=== PATIENT | female | born 1960 | race Caucasian/White ===

== ENCOUNTER → 2016-10-12 | Outpatient (CLI) | payer BC, OTHER ==
[~2016-10-12] MED LIST: ACET-1256 PO; ASCA500 PO; AZITTAB PO; CLR10 PO; FLUC150T PO; FLUT1SPR12 NAE; METO1TAB69 PO; MTR600 PO; MULT-614 PO; NYSTOIN EX; PRLSR20 PO; PROB1CAP PO; SYN112 PO; VNTHFA/IN INH; VTME100 PO
== END | disposition home or self-care (01) ==
LOC: C.LABMFLN 14:44
PROVIDERS: ATTEND Family Medicine
DX: R10.31 Right lower quadrant pain (principal)

== ENCOUNTER 2016-10-19 16:27 | Emergency (ER) | payer BC ==
[~2016-10-19] VITALS: Ht 185.4 cm; Wt 102.0 kg
[2016-10-19 16:29] VITALS: TEMP 36.9; Ht 185.4 cm; Wt 102.0 kg
[2016-10-19] MEDS ORDERED: VTME100 PO (17:20)
[2016-10-19] MEDS ORDERED: MULT-614 PO (17:20)
[2016-10-19] MEDS ORDERED: METO1TAB69 PO (17:20)
[2016-10-19] MEDS ORDERED: FLUT1SPR12 NAE (17:20)
[2016-10-19] MEDS ORDERED: CLR10 PO (17:20)
[2016-10-19] MEDS ORDERED: ASCA500 PO (17:20)
[2016-10-19] MEDS ORDERED: PRLSR20 PO (17:20)
[2016-10-19] MEDS ORDERED: PROB1CAP PO (17:20)
[2016-10-19] MEDS ORDERED: SYN112 PO (17:20)
[2016-10-19] MEDS ORDERED: ACET-1256 PO (17:21)
--- NOTE | 2016-10-19 17:25 | EMERGENCY ROOM VISIT NOTE ---
History Report prepared by Yinka: Sammy Hancock Under the Supervision of: Dr. Elisha Houston M.D. First contact with patient: 17:10 Chief Complaint: ABDOMINAL PAIN Stated Complaint: SEVERE ABD PAIN/PRESSURE Nursing Triage Summary: severe abdominal pain. all throughout abdomen. pain has been for the past 2 weeks but seems to be getting worse History of Present Illness The patient is a 56 year old female who presents to the Emergency Room with complaints of constant worsening abdominal pain for the past two weeks. The patient states that she has had bloating and pressure, and she states that the pain moves around her abdomen and also into her kidney area. She denies any nausea, melena, and past surgeries She states that she has a past medical history of cystitis. The patient states that she went to her doctor, and they did a urine test on he and the cultures came back negative. She states that she is currently taking Prilosec four times per day. The patient states that the pain is worse when she eats. Source of History: patient Onset: two weeks ago Position: abdomen Quality: pressure Timing: constant, worsening Modifying Factors (Worsening): eating Associated Symptoms: No melena, No nausea Review of Systems See HPI for pertinent positives & negatives. A total of 10 systems reviewed and were otherwise negative. Past Medical & Surgical Medical Problems: (1) Asthma (2) Cystitis (3) HTN (hypertension) (4) Vertigo Family History FH: cancer FH: gallbladder disease Social History Smoking Status: Never Smoker Alcohol Use: occasionally Marital Status: Housing Status: lives with family Occupation Status: employed Current/Historical Medications Scheduled Ascorbic Acid (Vitamin C), 500 MG PO DAILY Fluticasone Propionate (Nasal) (Flonase Allergy Relief Ch), 2 SPRAYS JOE DAILY Levothyroxine Sodium (Synthroid), 112 MCG PO DAILY Loratadine (Claritin), 10 MG PO DAILY Metoprolol Succ (Toprol Xl) (Toprol-Xl ), 100 MG PO DAILY Multiple Vitamins W/ Minerals (Centrum Silver Ultra [place]), 1 TAB PO DAILY Omeprazole (Prilosec), 20 MG PO DAILY Probiotic Product (Fortify Daily Probiotic), 1 CAP PO DAILY Tocopheryl Acet,Dl-Alpha (Vitamin E), 100 INTER.UNIT PO DAILY Scheduled PRN Acetaminophen (Tylenol), 1,000 MG PO Q6 PRN for Pain Allergies Coded Allergies: Cefprozil (Verified Allergy, Intermediate, hives, 10/19/16) Tetracycline (Verified Allergy, Intermediate, hives, 10/19/16) Sulfa Antibiotics (Verified Allergy, Unknown, Unknown, 10/19/16) Sulfamethoxazole (Verified Allergy, Unknown, 10/19/16) Physical Exam Vital Signs Date Time Temp Pulse Resp B/P Pulse Ox O2 Delivery O2 Flow Rate FiO2 10/19/16 21:22 63 18 155/83 97 Room Air 10/19/16 21:05 66 18 98 Room Air 10/19/16 19:08 64 18 157/75 97 Room Air 10/19/16 18:18 66 18 154/94 98 Room Air 10/19/16 16:29 36.9 74 18 153/93 97 Room Air Physical Exam CONSTITUTIONAL: Mildly anxious distress. HEENT: No icterus, moist mucous membranes NECK: No meningismus, trachea is midline. CARDIOVASCULAR: Regular rate, normal perfusion RESPIRATORY: Unlabored breathing. Clear to auscultation. GASTROINTESTINAL: Mid diffuse abdominal tenderness GENITOURINARY: No flank tenderness MUSCULOSKELETAL: Full range of motion NEUROLOGIC: No acute gross focal deficits. PSYCHIATRIC: Normal affect SKIN: Normal for ethnicity. Medical Decision & Procedures ER Provider Diagnostic Interpretation: Radiology results as stated below per my review and radiologist interpretation. ULTRASOUND RIGHT UPPER QUADRANT ABDOMEN CLINICAL HISTORY: Generalized abdominal pain. Bloating. COMPARISON STUDY: Abdominal CT dated 05/18/2013. TECHNIQUE: Real-time, grayscale, and color flow sonography of the right upper quadrant of the abdomen was performed. Images are reviewed in the transverse and longitudinal planes. The examination is degraded by significant bowel gas. FINDINGS: Liver: The liver is normal in size and echotexture. There is no intrahepatic biliary ductal dilatation. The main portal vein is patent. Gallbladder: The gallbladder is normal in appearance. No gallstones are identified. There is no gallbladder wall thickening or pericholecystic fluid. A sonographic Hester's sign is reportedly absent. The common bile duct measures up to 0.3 cm in diameter. Pancreas: Visualized portions of the pancreatic head and body are normal in appearance. The splenic vein is patent. Right kidney: Survey images of the right kidney demonstrate normal size and echotexture. There is no hydronephrosis. Ascites: None. IMPRESSION: Unremarkable sonographic assessment of the right upper quadrant. No gallstones are identified. Electronically signed by: Rk Delgado M.D. 10/19/2016 6:04 PM Dictated Date/Time: 10/19/2016 6:03 PM TWO VIEW CHEST CLINICAL HISTORY: Generalized abdominal pain. FINDINGS: PA and lateral chest radiographs are obtained. No prior studies are available for comparison at the time of dictation. The cardiomediastinal silhouette is unremarkable. Nonspecific interstitial thickening is noted. There is linear scarring versus atelectasis at the left lung base. The lungs and pleural spaces are otherwise clear. There is no pneumothorax. The skeletal structures are osteopenic. There is moderate S-shaped thoracolumbar scoliosis. IMPRESSION: No active disease in the chest. Electronically signed by: Rk Delgado M.D. 10/19/2016 5:46 PM Dictated Date/Time: 10/19/2016 5:[address] SCAN OF THE ABDOMEN AND PELVIS WITH IV CONTRAST CLINICAL HISTORY: Generalized/diffuse abdominal pain. Bloating. COMPARISON STUDY: Abdominal CT dated 05/18/2013. Abdominal ultrasound dated 10/19/2016. TECHNIQUE: Following the IV administration of 115 cc of Optiray 320, CT scan of the abdomen and pelvis is performed from the lung bases to the proximal femora. Images are reviewed in the axial, sagittal, and coronal planes. IV contrast was administered without complication. Automated dose control exposure was utilized. The examination is degraded by large body habitus, and by streak artifact from the body wall abutting the CT gantry. CT DOSE: 793.96 mGy.cm FINDINGS: Lung bases: The heart is normal in size and without pericardial effusion. A small fat-containing Bochdalek hernia is noted at the right lung base. The lung bases are otherwise clear noting bibasilar atelectasis. A small hiatal hernia is noted. Liver: The contrast-enhanced liver is normal in size, contour, and attenuation. There is no intrahepatic biliary ductal dilatation. The hepatic veins and portal veins are patent. Gallbladder: Unremarkable. Spleen: Normal in size and attenuation. Pancreas: Unremarkable. Adrenal glands: Unremarkable. Kidneys: The contrast enhanced kidneys demonstrate mild cortical atrophy and are without hydronephrosis. The kidneys enhance symmetrically. A 1.8 cm cyst is noted in the interpolar left kidney. Additional subcentimeter cortical hypodensities also likely represent cysts but are too small for definitive characterization. Abdominal vasculature: The abdominal aorta is normal in course and caliber. Bowel: The small bowel and colon are normal in course and caliber. There is mild diffuse wall thickening suggested throughout the left colon. No significant pericolonic inflammation is seen. The appendix is well-visualized and normal. Peritoneum: There is no intraperitoneal free air or abdominal ascites. There is a fat-containing umbilical hernia. Lymphadenopathy: None. Pelvic viscera: The bladder is decompressed and grossly unremarkable. The uterus and adnexa are normal as visualized. Tiny ovarian follicles are observed. Numerous phleboliths are present in the pelvis. Skeletal structures: The skeletal structures are osteopenic. No lytic or blastic lesions are seen. A large hemangioma is present in the body of L3. IMPRESSION: Findings suggest a mild and nonspecific colitis of the left colon. This is likely on an infectious or inflammatory basis in this age group. Clinical correlation will be required. Electronically signed by: Rk Delgado M.D. 10/19/2016 8:12 PM Dictated Date/Time: 10/19/2016 8:07 PM Laboratory Results 10/19/16 17:30 Red Blood Count 4.96, Mean Corpuscular Volume 86.1, Mean Corpuscular Hemoglobin 29.0, Mean Corpuscular Hemoglobin Concent 33.7, Mean Platelet Volume 9.6, Neutrophils (%) (Auto) 54.7, Lymphocytes (%) (Auto) 34.5, Monocytes (%) (Auto) 7.1, Eosinophils (%) (Auto) 2.9, Basophils (%) (Auto) 0.7, Neutrophils # (Auto) 3.74, Lymphocytes # (Auto) 2.37, Monocytes # (Auto) 0.49, Eosinophils # (Auto) 0.20, Basophils # (Auto) 0.05 10/19/16 17:30 Test 10/19/16 17:15 10/19/16 17:30 Urine Color YELLOW Urine Appearance CLOUDY (CLEAR) Urine pH 5.5 (4.5-7.5) Urine Specific [place] 1.029 (1.000-1.030) Urine Protein NEG (NEG) Urine Glucose (UA) NEG (NEG) Urine Ketones 2+ (NEG) Urine Occult Blood 2+ (NEG) Urine Nitrite NEG (NEG) Urine Bilirubin NEG (NEG) Urine Urobilinogen NEG (NEG) Urine Leukocyte Esterase NEG (NEG) Urine WBC (Auto) 1-5 /hpf (0-5) Urine RBC (Auto) 10-30 /hpf (0-4) Urine Hyaline Casts (Auto) 1-5 /lpf (0-5) Urine Epithelial Cells (Auto) 10-20 /lpf (0-5) Urine Bacteria (Auto) NEG (NEG) Urine Crystals CALCIUM OXALATE (NONE White Blood Count 6.86 K/uL (4.8-10.8) Red Blood Count 4.96 M/uL (4.2-5.4) Hemoglobin 14.4 g/dL (12.0-16.0) Hematocrit 42.7 % (37-47) Mean Corpuscular Volume 86.1 fL (80-100) Mean Corpuscular Hemoglobin 29.0 pg (25-34) Mean Corpuscular Hemoglobin Concent 33.7 g/dl (32-36) Platelet Count 219 K/uL (130-400) Mean Platelet Volume 9.6 fL (7.4-10.4) Neutrophils (%) (Auto) 54.7 % Lymphocytes (%) (Auto) 34.5 % Monocytes (%) (Auto) 7.1 % Eosinophils (%) (Auto) 2.9 % Basophils (%) (Auto) 0.7 % Neutrophils # (Auto) 3.74 K/uL (1.4-6.5) Lymphocytes # (Auto) 2.37 K/uL (1.2-3.4) Monocytes # (Auto) 0.49 K/uL (0.11-0.59) Eosinophils # (Auto) 0.20 K/uL (0-0.5) Basophils # (Auto) 0.05 K/uL (0-0.2) RDW Standard Deviation 42.9 fL (36.4-46.3) RDW Coefficient of Variation 13.7 % (11.5-14.5) Immature Granulocyte % (Auto) 0.1 % Immature Granulocyte # (Auto) 0.01 K/uL (0.00-0.02) Anion Gap 12.0 mmol/L (3-11) Est Creatinine Clear Calc Drug Dose 95.7 ml/min Estimated GFR () 85.1 Estimated GFR (Non- 73.4 BUN/Creatinine Ratio 20.0 (10-20) Calcium Level 8.9 mg/dl (8.5-10.1) Total Bilirubin 0.4 mg/dl (0.2-1) Direct Bilirubin 0.1 mg/dl (0-0.2) Aspartate Amino Transf (AST/SGOT) 14 U/L (15-37) Alanine Aminotransferase (ALT/SGPT) 19 U/L (12-78) Alkaline Phosphatase 52 U/L (45-117) Troponin I < 0.015 ng/ml (0-0.045) Total Protein 7.9 gm/dl (6.4-8.2) Albumin 4.0 gm/dl (3.4-5.0) Lipase 183 U/L (73-393) Labs reviewed by ED physician. ED Course 1710: Past medical records reviewed. The patient was evaluated in room C4. A complete history and physical examination was performed. 2100: Upon reexamination the patient is resting. I discussed results and treatment plan with the patient. She verbalizes agreement and understanding. The patient is ready for discharge. Medical Decision Differential diagnoses include but are not limited to; Biliary disease, obstruction, tumor. 56-year-old presents to the emergency department for evaluation nonspecific bloating and pressure throughout her abdomen over the last week. Extensive evaluation including CT, ultrasound and labs was essentially unremarkable other than 2+ ketones in the urine, small blood and urine crystals. She is advised to hydrate and follow up with her doctor. She was provided copy of all labs and imaging results today. She declined IV fluids prior to discharge. Impression Primary Impression: Abdominal pain Scribe Attestation The scribe's documentation has been prepared under my direction and personally reviewed by me in its entirety. I confirm that the note above accurately reflects all work, treatment, procedures, and medical decision making performed by me. Departure Information Dispostion Home / Self-Care Referrals Kadie Alberts M.D. (PCP) Forms Call Back Authorization, HOME CARE DOCUMENTATION FORM, IMPORTANT VISIT INFORMATION Patient Instructions Abdominal Pain - [facility], My [facility]
[2016-10-19 17:35] LABS: URINE APPEARANCE CLOUDY (CLEAR); URINE BILIRUBIN NEG (NEG); URINE COLOR YELLOW; URINE NITRITE NEG (NEG); URINE PH 5.5 (4.5-7.5); URINE SPECIFIC GRAVITY 1.029 (1.000-1.030); UROBILINOGEN NEG (NEG)
[2016-10-19 17:37] LABS: MANUAL MICROSCOPIC REQUIRED? NO; REVIEW REQ? YES
--- NOTE | 2016-10-19 17:47 | DIAGNOSTIC IMAGING REPORT ---
TWO VIEW CHEST CLINICAL HISTORY: Generalized abdominal pain. FINDINGS: PA and lateral chest radiographs are obtained. No prior studies are available for comparison at the time of dictation. The cardiomediastinal silhouette is unremarkable. Nonspecific interstitial thickening is noted. There is linear scarring versus atelectasis at the left lung base. The lungs and pleural spaces are otherwise clear. There is no pneumothorax. The skeletal structures are osteopenic. There is moderate S-shaped thoracolumbar scoliosis. IMPRESSION: No active disease in the chest. Electronically signed by: Rk Delgado M.D. 10/19/2016 5:46 PM Dictated Date/Time: 10/19/2016 5:45 PM
[2016-10-19 17:48] LABS: BASO % 0.7 %; BASO ABS # 0.05 K/uL (0-0.2); COMPLETE YES; EOS % 2.9 %; HEMATOCRIT 42.7 % (37-47); IG% 0.1 %; LYMPH % 34.5 %; LYMPH ABS # 2.37 K/uL (1.2-3.4); MEAN CELL VOLUME 86.1 fL (80-100); MEAN CORPUSCULAR HGB CONC 33.7 g/dl (32-36); MEAN PLATELET VOLUME 9.6 fL (7.4-10.4); MONO % 7.1 %; NEUT % 54.7 %; PLATELET COUNT 219 K/uL (130-400); RED BLOOD COUNT 4.96 M/uL (4.2-5.4); WHITE BLOOD COUNT 6.86 K/uL (4.8-10.8)
--- NOTE | 2016-10-19 18:06 | DIAGNOSTIC IMAGING REPORT ---
ULTRASOUND RIGHT UPPER QUADRANT ABDOMEN CLINICAL HISTORY: Generalized abdominal pain. Bloating. COMPARISON STUDY: Abdominal CT dated 05/18/2013. TECHNIQUE: Real-time, grayscale, and color flow sonography of the right upper quadrant of the abdomen was performed. Images are reviewed in the transverse and longitudinal planes. The examination is degraded by significant bowel gas. FINDINGS: Liver: The liver is normal in size and echotexture. There is no intrahepatic biliary ductal dilatation. The main portal vein is patent. Gallbladder: The gallbladder is normal in appearance. No gallstones are identified. There is no gallbladder wall thickening or pericholecystic fluid. A sonographic Hester's sign is reportedly absent. The common bile duct measures up to 0.3 cm in diameter. Pancreas: Visualized portions of the pancreatic head and body are normal in appearance. The splenic vein is patent. Right kidney: Survey images of the right kidney demonstrate normal size and echotexture. There is no hydronephrosis. Ascites: None. IMPRESSION: Unremarkable sonographic assessment of the right upper quadrant. No gallstones are identified. Electronically signed by: Rk Delgado M.D. 10/19/2016 6:04 PM Dictated Date/Time: 10/19/2016 6:03 PM
[2016-10-19 18:19] LABS: ALT/SGPT 19 U/L (12-78); BLOOD UREA NITROGEN 17 mg/dl (7-18); CALCIUM 8.9 mg/dl (8.5-10.1); CARBON DIOXIDE 24 mmol/L (21-32); CHLORIDE 107 mmol/L (98-107); CREATININE 0.87 mg/dl (0.60-1.20); GLUCOSE 81 mg/dl (70-99); POTASSIUM 3.9 mmol/L (3.5-5.1); SODIUM 143 mmol/L (136-145)
[2016-10-19 18:24] LABS: ALKALINE PHOSPHATASE 52 U/L (45-117); AST/SGOT 14 U/L (15-37)
[2016-10-19] MEDS ORDERED: OPTIRAY 320 IV PRN (19:15)
--- NOTE | 2016-10-19 20:14 | DIAGNOSTIC IMAGING REPORT ---
CT SCAN OF THE ABDOMEN AND PELVIS WITH IV CONTRAST CLINICAL HISTORY: Generalized/diffuse abdominal pain. Bloating. COMPARISON STUDY: Abdominal CT dated 05/18/2013. Abdominal ultrasound dated 10/19/2016. TECHNIQUE: Following the IV administration of 115 cc of Optiray 320, CT scan of the abdomen and pelvis is performed from the lung bases to the proximal femora. Images are reviewed in the axial, sagittal, and coronal planes. IV contrast was administered without complication. Automated dose control exposure was utilized. The examination is degraded by large body habitus, and by streak artifact from the body wall abutting the CT gantry. CT DOSE: 793.96 mGy.cm FINDINGS: Lung bases: The heart is normal in size and without pericardial effusion. A small fat-containing Bochdalek hernia is noted at the right lung base. The lung bases are otherwise clear noting bibasilar atelectasis. A small hiatal hernia is noted. Liver: The contrast-enhanced liver is normal in size, contour, and attenuation. There is no intrahepatic biliary ductal dilatation. The hepatic veins and portal veins are patent. Gallbladder: Unremarkable. Spleen: Normal in size and attenuation. Pancreas: Unremarkable. Adrenal glands: Unremarkable. Kidneys: The contrast enhanced kidneys demonstrate mild cortical atrophy and are without hydronephrosis. The kidneys enhance symmetrically. A 1.8 cm cyst is noted in the interpolar left kidney. Additional subcentimeter cortical hypodensities also likely represent cysts but are too small for definitive characterization. Abdominal vasculature: The abdominal aorta is normal in course and caliber. Bowel: The small bowel and colon are normal in course and caliber. There is mild diffuse wall thickening suggested throughout the left colon. No significant pericolonic inflammation is seen. The appendix is well-visualized and normal. Peritoneum: There is no intraperitoneal free air or abdominal ascites. There is a fat-containing umbilical hernia. Lymphadenopathy: None. Pelvic viscera: The bladder is decompressed and grossly unremarkable. The uterus and adnexa are normal as visualized. Tiny ovarian follicles are observed. Numerous phleboliths are present in the pelvis. Skeletal structures: The skeletal structures are osteopenic. No lytic or blastic lesions are seen. A large hemangioma is present in the body of L3. IMPRESSION: Findings suggest a mild and nonspecific colitis of the left colon. This is likely on an infectious or inflammatory basis in this age group. Clinical correlation will be required. Electronically signed by: Rk Delgado M.D. 10/19/2016 8:12 PM Dictated Date/Time: 10/19/2016 8:07 PM
[2016-10-19 21:22] VITALS: BP 155/83; PULSE 63; O2SAT 97
[2017-02-20] MEDS ORDERED: AZITTAB PO (17:42)
[2017-02-23] MEDS ORDERED: VNTHFA/IN INH (17:42)
== END 2016-10-19 21:26 | disposition home or self-care (01) ==
LOC: C.EDB 16:28 → C.EDC 21:26
DX: R10.9 Unspecified abdominal pain (principal); I10 Essential (primary) hypertension; R14.0 Abdominal distension (gaseous)

== ENCOUNTER 2017-02-23 17:03 | Observation (INO) | payer BC ==
[~2017-02-23] VITALS: Ht 182.9 cm; Wt 102.1 kg
[~2017-02-23 17:03] MED LIST changes: -AMOX500C3 PO; -ASCA500 PO; -CAMPOIN7 TOP; -CETI10TA84 PO; -FLUC150T PO; -FLUT1INH INH; -FLUT1SPR12 NAE; -HYDR5SYP11 PO; -LACT10CA3 PO; -METO100T44 PO; -MONT1TAB3 PO; -MTR600 PO; -MULT-614 PO; -NF656 TD; -NYSTOIN EX; -OMEG10007 PO; -OPTIRAY 320 IV PRN; -PRIM50TA29 PO; -ROSU5TAB PO; -SYN112 PO; -VNTHFA/IN INH
[2017-02-23] MEDS ORDERED: NYSTOIN EX (17:42)
[2017-02-23] MEDS ORDERED: SODIUM CHLORIDE 0.9% 1000ML 1,000 ML IV STA (17:50)
[2017-02-23] MEDS ORDERED: ASPIRIN 81 MG CHEW PO STA (17:50)
[2017-02-23] MEDS ORDERED: NITROGLYCERIN 0.4 MG SL PER TAB CHARGE SL PRN ×2 (18:00→20:00)
[2017-02-23 18:04] LABS: BASO % 0.5 %; BASO ABS # 0.04 K/uL (0-0.2); COMPLETE YES; EOS % 3.1 %; HEMATOCRIT 45.9 % (37-47); IG% 0.3 %; LYMPH % 27.3 %; MEAN CELL VOLUME 88.1 fL (80-100); MEAN CORPUSCULAR HEMOGLOBIN 27.6 pg (25-34); MEAN CORPUSCULAR HGB CONC 31.4 g/dl (32-36); MEAN PLATELET VOLUME 9.3 fL (7.4-10.4); MONO % 7.2 %; NEUT % 61.6 %; PLATELET COUNT 218 K/uL (130-400); RED BLOOD COUNT 5.21 M/uL (4.2-5.4); WHITE BLOOD COUNT 7.69 K/uL (4.8-10.8)
--- NOTE | 2017-02-23 18:10 | DIAGNOSTIC IMAGING REPORT ---
CHEST ONE VIEW PORTABLE HISTORY: Atypical CHEST PAIN COMPARISON: Chest CTA 02/23/2017. FINDINGS: The lungs are clear. Cardiac silhouette is normal in size. No pleural effusions. No pneumothorax. Moderate S-shaped scoliosis. IMPRESSION: No acute process. Electronically signed by: Peter Funes M.D. 02/23/2017 6:08 PM Dictated Date/Time: 02/23/2017 6:08 PM
[2017-02-23 18:12] LABS: ALT/SGPT 28 U/L (12-78); AST/SGOT 12 U/L (15-37); BLOOD UREA NITROGEN 13 mg/dl (7-18); BUN/CREATININE RATIO 13.4 (10-20); CALCIUM 8.7 mg/dl (8.5-10.1); CARBON DIOXIDE 27 mmol/L (21-32); CHLORIDE 106 mmol/L (98-107); GLUCOSE 110 mg/dl (70-99); POTASSIUM 3.7 mmol/L (3.5-5.1); SODIUM 140 mmol/L (136-145)
[2017-02-23 18:15] LABS: ALKALINE PHOSPHATASE 66 U/L (45-117)
[2017-02-23] MEDS ORDERED: MoRPHine SULFATE 2 MG/ML CARP IV PRN (20:00)
[2017-02-23] MEDS ORDERED: POLYETHYLENE (MIRALAX) 17 GM PACK PO PRN (20:00)
[2017-02-23] MEDS ORDERED: ONDANSETRON INJ 2 MG/ML 2 ML VIAL IV PRN (20:00)
[2017-02-23] MEDS ORDERED: ALBUTEROL HFA 8 GM INHALER INH PRN (20:00)
[2017-02-23] MEDS ORDERED: NYSTATIN/TRIAMCINOLONE OINT 15 GM TUBE EXT PRN (20:00)
[2017-02-23] MEDS ORDERED: ALUMINUM/MAGNESIUM/SIMETH (MAALOX MAX) 30 ML UDC PO PRN (20:00)
[2017-02-23] MEDS ORDERED: MAGNESIUM HYDROXIDE SUSP 30 ML UDC PO PRN (20:00)
--- NOTE | 2017-02-23 20:09 | History and Physical ---
History & Physical Date & Time of Service: Feb 23, 2017 at 20:08 Chief Complaint: Chest Pain Primary Care Physician: Kadie Alberts M.D. History of Present Illness This pleasant 56-year-old female with a history of hypertension but otherwise no cardiac history who presents to the emergency department with 1 day of sudden onset chest pain. She states that last week she was in [place] at a spa retreat and stated that she gotten the deep tissue massage in her neck she returned home approximately 5 days ago. Upon her return she felt generalized swelling and mild tenderness bilaterally in her neck with a small degree of lightheadedness, weakness and generalized aches. Over proximal with 72 hours the neck symptoms improved and the swelling she feels came down. She states a remote history of TMJ syndrome, however it has not caused her problems for many many years. She denies any history with swallowing or chewing, and did not have the sense of her throat closing off. For the past 2 nights however, she has been waking up in the middle the night with this mild degree of chest pressure as well as feeling sweatiness across her sternum only and nowhere else. She had notified her PCP of the symptoms PCP and started her on a five-day course of azithromycin (she currently only has one day left). She'll that she did have some slight improvement, however early this morning at approximately 01:30 a.m., she developed more severe 8/10 central chest pressure squeezing that she states have some slight radiation to her left arm and hand. She denies any orthopnea, shortness of breath, palpitations or lower extremity edema. She states that she felt cold and tremors, though had no fevers. After roughly 30 minutes, she is able to get back to sleep. This morning after she woke she states that the pain was 80% better, but she made her appointment with her PCP to follow up. PCP did an EKG in the office, which was reported to be normal PCP. She also had lab work done at an outside hospital. A Monospot was negative. The d-dimer was elevated however at's 0.63. As such the PCP refer the patient to [facility] for CT evaluation for pulmonary embolism. The CT was done this afternoon and was reported as negative. However the patient continued to complain of chest pressure, 5/6 centrally in the sternum, and after she called her PCP she was instructed to go to the ED for further evaluation. In the ED the patient was given ASA 325, 0.4 mg sublingual nitrate. An initial troponin level was negative. EKG was done which showed some T-wave inversion in V1 and V2, though there is no prior EKG for comparison. Otherwise, the patient does state that she's had some degree of stress in the past few days. She makes note of her previous who had committed suicide 9 years ago and this does cause her some stress. 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 Past Medical/Surgical History HTN Hypothyroidism, s/p partial thyroidectomy Mild intermittent asthma Essential tremor or the right hand Restless right foot Family History FH: cancer FH: gallbladder disease - Mother of breast cancer in her 40s Social History Smoking Status: Never Smoker Smokeless Tobacco Use: No Alcohol Use: none Drug Use: none Marital Status: Occupational Status: employed (emotional disabilities teacher) Multi-Drug Resistant Organisms History of MDRO: No Allergies Coded Allergies: Cefprozil (Verified Allergy, Intermediate, hives, 02/23/17) Tetracycline (Verified Allergy, Intermediate, hives, 02/23/17) Sulfa Antibiotics (Verified Allergy, Unknown, Unknown, 02/23/17) Sulfamethoxazole (Verified Allergy, Unknown, 02/23/17) Home Medications Scheduled Ascorbic Acid (Vitamin C), 500 MG PO DAILY Azithromycin (Zithromax Z-Fabricio), 1 PKT PO UD Fluticasone Propionate (Nasal) (Flonase Allergy Relief Ch), 2 SPRAYS JOE DAILY Levothyroxine Sodium (Synthroid), 112 MCG PO DAILY Loratadine (Claritin), 10 MG PO DAILY Metoprolol Succ (Toprol Xl) (Toprol-Xl ), 100 MG PO DAILY Multiple Vitamins W/ Minerals (Centrum Silver Ultra Wome), 1 TAB PO DAILY Probiotic Product (Fortify Daily Probiotic), 1 CAP PO DAILY Tocopheryl Acet,Dl-Alpha (Vitamin E), 100 INTER.UNIT PO DAILY Scheduled PRN Albuterol Hfa (Ventolin Hfa), 2 PUFFS INH Q6H PRN for SOB/Wheezing Nystatin-Triamcinolone (Nystatin/Triamcinolone), 1 APPLN EX DAILY PRN for VAGINALLY Review of Systems 10 point review of systems is otherwise negative unless stated above in the history of present illness Physical Exam Vital Signs Date Time Temp Pulse Resp B/P (MAP) Pulse Ox O2 Delivery O2 Flow Rate FiO2 02/23/17 19:33 84 28 144/89 98 Room Air 02/23/17 19:28 78 26 02/23/17 19:23 79 26 02/23/17 19:18 76 24 02/23/17 19:13 79 24 02/23/17 19:08 80 16 02/23/17 19:04 79 02/23/17 17:05 36.6 83 20 146/84 95 Room Air General Appearance: WD/WN, no apparent distress Head: normocephalic, atraumatic Eyes: normal inspection, EOMI ENT: hearing grossly normal, pharynx normal Neck: supple, no adenopathy, no JVD, + pertinent finding (old partial thyroidectomy scar well-healed) Respiratory/Chest: lungs clear, no respiratory distress Cardiovascular: regular rate, rhythm, no gallop, no murmur Abdomen/GI: normal bowel sounds, non tender, soft Back: no CVA tenderness, no muscle spasm Extremities/Musculoskelatal: no calf tenderness, no pedal edema Neurologic/Psych: alert, normal mood/affect, oriented x 3 Skin: normal color, warm/dry, no rash Lymphatic: no adenopathy Diagnostics Laboratory Results Results Past 24 Hours Test 02/23/17 17:30 02/23/17 18:01 Range/Units White Blood Count 7.69 4.8-10.8 K/uL Red Blood Count 5.21 4.2-5.4 M/uL Hemoglobin 14.4 12.0-16.0 g/dL Hematocrit 45.9 37-47 % Mean Corpuscular Volume 88.1 80-100 fL Mean Corpuscular Hemoglobin 27.6 25-34 pg Mean Corpuscular Hemoglobin Concent 31.4 32-36 g/dl Platelet Count 218 130-400 K/uL Mean Platelet Volume 9.3 7.4-10.4 fL Neutrophils (%) (Auto) 61.6 % Lymphocytes (%) (Auto) 27.3 % Monocytes (%) (Auto) 7.2 % Eosinophils (%) (Auto) 3.1 % Basophils (%) (Auto) 0.5 % Neutrophils # (Auto) 4.74 1.4-6.5 K/uL Lymphocytes # (Auto) 2.10 1.2-3.4 K/uL Monocytes # (Auto) 0.55 0.11-0.59 K/uL Eosinophils # (Auto) 0.24 0-0.5 K/uL Basophils # (Auto) 0.04 0-0.2 K/uL RDW Standard Deviation 42.6 36.4-46.3 fL RDW Coefficient of Variation 13.4 11.5-14.5 % Immature Granulocyte % (Auto) 0.3 % Immature Granulocyte # (Auto) 0.02 0.00-0.02 K/uL Sodium Level 140 136-145 mmol/L Potassium Level 3.7 3.5-5.1 mmol/L Chloride Level 106 98-107 mmol/L Carbon Dioxide Level 27 21-32 mmol/L Anion Gap 7.0 3-11 mmol/L Blood Urea Nitrogen 13 7-18 mg/dl Creatinine 1.00 0.60-1.20 mg/dl Est Creatinine Clear Calc Drug Dose 82.2 ml/min Estimated GFR () 71.9 Estimated GFR (Non- 62.1 BUN/Creatinine Ratio 13.4 10-20 Random Glucose 110 70-99 mg/dl Calcium Level 8.7 8.5-10.1 mg/dl Total Bilirubin 0.6 0.2-1 mg/dl Direct Bilirubin < 0.1 0-0.2 mg/dl Aspartate Amino Transf (AST/SGOT) 12 15-37 U/L Alanine Aminotransferase (ALT/SGPT) 28 12-78 U/L Alkaline Phosphatase 66 45-117 U/L Creatine Kinase MB Ratio 0-3.0 Troponin I < 0.015 0-0.045 ng/ml Total Protein 8.4 6.4-8.2 gm/dl Albumin 3.8 3.4-5.0 gm/dl Lipase 205 73-393 U/L Bedside D-Dimer > 450 0-450 ng/mlFEU CXR normal EKG Normal sinus rhythm Possible Left atrial enlargement Nonspecific ST and T wave abnormality Abnormal ECG No previous ECGs available Impression Assessment and Plan (1) Chest pain Assessment & Plan: -CT for pulmonary embolism was negative; no acute findings on chest x-ray We will pursue workup for coronary disease - Observation and telemetry - Serial cardiac enzymes every 6 hours 4 - EKG every morning - ASA 324 given in the ED - Nitroglycerin 0.4 mg sublingual when necessary for chest pain - Based on age and history of hypertension, patient would be an intermediate pretest probability for coronary disease Stress echocardiogram ordered for the morning I have not consult cardiology at this time; this can be considered following stress testing - We'll check fasting lipids and hemoglobin A1c with morning labs (2) Tenderness of neck Assessment & Plan: - Mild tenderness in the neck, though no lymph nodes palpated - No bruits on exam - [place] testing at outside hospital was negative - Remote history of TMJ - Continue to observe at this time, the low suspicion of carotid dissection or aneurysm, though this can be considered if pain persists or worsens (3) HTN (hypertension) Assessment & Plan: - Continue metoprolol per her home medications (4) History of thyroidectomy, subtotal Assessment & Plan: - TSH from outside hospital reviewed; slightly elevated at 4.7 - Repeat TSH with morning labs - Continue Synthroid, and adjust per TSH as needed (5) Seasonal allergies Assessment & Plan: - Continue Flonase as needed - Continue Claritin as needed (6) Essential tremor Assessment & Plan: - States that she has follow-up with Dr. Mohamud set up - We'll continue to observe at this time without treatment (7) Asthma Assessment & Plan: - Ventolin as needed DVT prophylaxis - SCD - Heparin 5000 s.c TID Code Status - Level I Code - Son Bereket Parsons is the patient's POA IF substitute decision maker is needed Disposition - Telemetry - No OT or PT orders placed; the patient lives independently at home Level of Care Telemetry Resuscitation Status FULL RESUSCITATION VTE Prophylaxis VTE Risk Assessment Done? Y/N: Yes Risk Level: Moderate Given or contraindicated: Enoxaparin (Lovenox)SQ Note Resident Physician Supervision Note: I was present with Dr. Angelo during the history and exam. I discussed the case with the resident and agree with the findings and plan as documented in the note. Any exceptions or clarifications are listed here: 56 y/o F presenting with Central CP and diaphoresis waking her from sleep Had also c/o 3 days neck pain/swelling following massage but this has apparently resolved OE AAO x 3 S1,2 R CTAB NT, ND No CCE P: Serial enzymes - monitor on telemetry for EKG changes if CP recurs ASA, NTG PRN - will need f/u stress Documented By: Deepak Bennett
[2017-02-23] MEDS ORDERED: IV FLUIDS COMPLETED PRN (21:00)
[2017-02-23 22:32] VITALS: BP 136/81; PULSE 73; TEMP 36.4; O2SAT 97; Ht 182.9 cm; Wt 102.1 kg
[2017-02-23 23:56] VITALS: BP 117/70; PULSE 67; TEMP 36.9; O2SAT 95
[2017-02-24] VITALS (7 sets, daily range): BP systolic 134–145; BP diastolic 79–92; PULSE 69–85; TEMP 36.8–37.5; O2SAT 94–96
[2017-02-24] MEDS: ACETAMINOPHEN 325 MG TAB PO PRN ×4 (01:49→16:54)
[2017-02-24] MEDS ORDERED: LORAZEPAM 0.5 MG TAB PO STA (02:12)
--- NOTE | 2017-02-24 02:33 | EMERGENCY ROOM VISIT NOTE ---
ED Visit Note First contact with patient: 17:25 Chief Complaint: Chest pain. History of Present Illness: Ms. Santiago is a 56-year-old white female who ambulates into the ED accompanied by her complaining of chest pain. Historically patient reports she has no history of coronary artery disease. She does have a risk factor of hypertension and reports her mother had coronary artery disease; but she did not have any MIs or surgeries. Patient reports last week she was at a spa in [facility]. She reports 2 days into a five-day stay she started experiencing a swelling sensation over the anterior throat. This was associated with pain. Then she reports that during the night she wrapped her throat with a moist towel and she was woken up from sleep 3 nights in a row with focal diaphoresis of the throat and upper anterior chest. She contacted her PCP and was started on Zithromax and encouraged to follow-up. Patient then reports earlier this morning approximately 2 AM she was awoken from sleep with an acute onset of chest pain. Since that time the pain has been constant but has slightly waxed and waned in intensity. She reports that she called her PCP approximately 6-7 hours after the onset of the pain and she was referred to [facility] for laboratory testing. I was able to get a copy of the laboratory testing and she was found to have an elevated d-dimer, sedimentation right, cholesterol, LDL and TSH with normal troponin. Patient then was referred to this [facility]'s CT unit for a chest CTA which was negative for pulmonary thrombus. Patient then reports she was on her way home and called her PCP and reported that she continued to have pain. PCP requested that she return to this hospital for ED evaluation and hospital stay to rule out myocardial infarction and possibly have a stress test. Currently patient describes her discomfort as a midsternal pressure sensation. She rates her discomfort 6/10. Her pain is radiating into the left shoulder and down the left arm with paresthesias in the fingers. Her pain worsens with deep inspiration and become sharp in nature. She has not identified any alleviating factors related to the pain. She has not taken any medications for pain prior to arrival at the hospital. She denies any associated fevers, chills, skin eruptions, skin color changes, dizziness, lightheadedness, headache, upper respiratory tract symptoms, cough, wheezing, shortness of breath, palpitations, orthopnea, dependent edema, previous clots, claudication, cramping, recent surgery/inactivity/extended travel, abdominal pain, nausea, vomiting, back/flank pain, extremity weakness/ numbness/tingling. Review of Systems: As noted above in history of present illness. All body systems were reviewed and found to be negative as noted above. Past Medical History: As noted above and (1) Asthma (2) Chest pain (3) Cystitis (4) Essential tremor (5) HTN (hypertension) (6) Seasonal allergies (7) Tenderness of neck (8) Vertigo Surgical Problems: (1) History of thyroidectomy, subtotal Current Medications: Medications Dose Route/Sig Max Daily Dose Days Date Category Nystatin/Triamcinolone (Nystatin-Triamcinolone) 1 Oin Oin 1 Appln EX DAILY PRN 5 02/23/17 Reported Zithromax Z-Fabricio (Azithromycin) 250 Mg Tab 1 Pkt PO UD 5 02/23/17 Reported Ventolin Hfa (Albuterol) 200 Puffs/20479 Mcg Aers 2 Puffs INH Q6H PRN 02/23/17 Reported Flonase Allergy Relief Ch (Fluticasone Propionate (Nasal)) 50 Mcg/Act Spr 2 Sprays JOE DAILY 10/19/16 Reported Claritin (Loratadine) 10 Mg Tab 10 Mg PO DAILY 10/19/16 Reported Fortify Daily Probiotic (Probiotic Product) 1 Cap Cap 1 Cap PO DAILY 10/19/16 Reported Vitamin E (Tocopheryl Acet,Dl-Alpha) 100 Interunit Cap 100 Inter.unit PO DAILY 10/19/16 Reported Centrum Silver Ultra Wome (Multiple Vitamins W/ Minerals) 1 Tab Tab 1 Tab PO DAILY 10/19/16 Reported Vitamin C (Ascorbic Acid) 500 Mg Tab 500 Mg PO DAILY 10/19/16 Reported Toprol-Xl (Metoprolol Succinate) 100 Mg Tabcr 100 Mg PO DAILY 10/19/16 Reported Synthroid (Levothyroxine Sodium) 112 Mcg Tab 112 Mcg PO DAILY 10/19/16 Reported Allergies to Medications: Cefprozil, sulfa, tetracycline. Social History: Patient is currently employed; she feels safe in her home environment; she denies tobacco. Physical Examination: Vital Signs: Date Time Temp Pulse Resp B/P (MAP) Pulse Ox O2 Delivery O2 Flow Rate FiO2 02/23/17 19:42 144/89 02/23/17 19:38 84 18 02/23/17 19:33 84 28 144/89 98 Room Air 02/23/17 19:28 78 26 02/23/17 19:23 79 26 02/23/17 19:18 76 24 02/23/17 19:13 79 24 02/23/17 19:08 80 16 02/23/17 19:04 79 02/23/17 17:05 36.6 83 20 146/84 95 Room Air GENERAL: 56-year-old female in mild distress due to pain, nontoxic-appearing, afebrile and hemodynamically stable. NEUROLOGICAL: Awake, alert and oriented to person, place and time. Answering questions appropriately and following commands. Normal gait. Good hand eye coordination. No focal motor or sensory deficits. SKIN: Warm, dry and pink. No soft tissue eruptions or trauma noted. HEENT: Atraumatic and normocephalic. PERRL. Sclera white and conjunctiva pink. No drainage from naris. Oral cavity moist and pink. Pharynx is nonerythematous or edematous. Speech normal. No lymphadenopathy. Trachea midline. No jugular venous distention. No carotid bruits. BACK: No tenderness over the bony spine. No CVA tenderness. THORAX: Lungs sounds are clear to auscultation and equal bilaterally with symmetrical chest wall. No wheezing, rales or rhonchi. No crepitus, tenderness , subcutaneous air or deformities noted. HEART: Regular rate and rhythm. No gallops, rubs or murmurs are appreciated. ABDOMEN: Flat, soft and nontender. Positive bowel sounds in all quadrants. No guarding, rigidity or organomegaly. EXTREMITIES: Moves all extremities well on command and with purpose. All distal neurovascular statuses are intact and equal bilaterally. No calf tenderness or cords. ED Course: Patient is assessed as noted above. Patient's medication list was reviewed. Laboratory Testing: Test 02/23/17 17:30 02/23/17 18:01 Range/Units White Blood Count 7.69 4.8-10.8 K/uL Red Blood Count 5.21 4.2-5.4 M/uL Hemoglobin 14.4 12.0-16.0 g/dL Hematocrit 45.9 37-47 % Mean Corpuscular Volume 88.1 80-100 fL Mean Corpuscular Hemoglobin 27.6 25-34 pg Mean Corpuscular Hemoglobin Concent 31.4 32-36 g/dl Platelet Count 218 130-400 K/uL Mean Platelet Volume 9.3 7.4-10.4 fL Neutrophils (%) (Auto) 61.6 % Lymphocytes (%) (Auto) 27.3 % Monocytes (%) (Auto) 7.2 % Eosinophils (%) (Auto) 3.1 % Basophils (%) (Auto) 0.5 % Neutrophils # (Auto) 4.74 1.4-6.5 K/uL Lymphocytes # (Auto) 2.10 1.2-3.4 K/uL Monocytes # (Auto) 0.55 0.11-0.59 K/uL Eosinophils # (Auto) 0.24 0-0.5 K/uL Basophils # (Auto) 0.04 0-0.2 K/uL RDW Standard Deviation 42.6 36.4-46.3 fL RDW Coefficient of Variation 13.4 11.5-14.5 % Immature Granulocyte % (Auto) 0.3 % Immature Granulocyte # (Auto) 0.02 0.00-0.02 K/uL Sodium Level 140 136-145 mmol/L Potassium Level 3.7 3.5-5.1 mmol/L Chloride Level 106 98-107 mmol/L Carbon Dioxide Level 27 21-32 mmol/L Anion Gap 7.0 3-11 mmol/L Blood Urea Nitrogen 13 7-18 mg/dl Creatinine 1.00 0.60-1.20 mg/dl Est Creatinine Clear Calc Drug Dose 82.2 ml/min Estimated GFR () 71.9 Estimated GFR (Non- 62.1 BUN/Creatinine Ratio 13.4 10-20 Random Glucose 110 70-99 mg/dl Calcium Level 8.7 8.5-10.1 mg/dl Total Bilirubin 0.6 0.2-1 mg/dl Direct Bilirubin < 0.1 0-0.2 mg/dl Aspartate Amino Transf (AST/SGOT) 12 15-37 U/L Alanine Aminotransferase (ALT/SGPT) 28 12-78 U/L Alkaline Phosphatase 66 45-117 U/L Total Creatine Kinase 54 26-192 U/L Creatine Kinase MB < 0.5 0.5-3.6 ng/ml Creatine Kinase MB Ratio 0-3.0 Troponin I < 0.015 0-0.045 ng/ml Total Protein 8.4 6.4-8.2 gm/dl Albumin 3.8 3.4-5.0 gm/dl Lipase 205 73-393 U/L Procalcitonin 0.10 0-0.5 ng/ml Bedside D-Dimer > 450 0-450 ng/mlFEU EKG: Was read by myself and reviewed with Dr. Dumont; shows normal sinus rhythm with ventricular rate of 82 bpm. T-wave inversion in V1 and V2 which is nonspecific. No ischemic changes. No previous to compare. Chest X-Ray: Was read by myself and the radiologist showing no acute infiltrates , effusions or pneumothorax. Normal heart silhouette. No vascular changes. Moderate as shaped scoliosis. Patient was hydrated with normal saline, patient received 0.4 mg of nitroglycerin sublingually and 324 mg of aspirin for oral chew. Patient was reassessed multiple times during her stay in the emergency department. Shortly after she received nitroglycerin tablet she reports that she was pain-free. Patient's case was reviewed with Dr. Dumont; we agreed on diagnostic approach , treatment, disposition and plan. Patient's case was consulted with case management and the Dr. Chang, [facility] hospitalist; for medical observation/admission. Patient was educated about today's findings. Clinical Impression: Acute chest pain. Decision-Making: Initially my differential diagnosis I considered acute coronary syndrome, thoracic aneurysm, pneumothorax, pneumonia, pulmonary embolism, musculoskeletal disorder, anxiety and other causes. Disposition and Plan: Patient be brought in the hospital for observation/ admission by the hospitalist; please see their notes and orders for final disposition and plan.
[2017-02-24] MEDS: LEVOTHYROXINE 112 MCG TAB PO SCH (06:02)
[2017-02-24] MEDS: TOCOPHERYL, DL-ALPHA 100 INTERUNIT CAP PO SCH (08:03)
[2017-02-24] MEDS: CEROVITE ADV FORMULA TAB PO SCH (08:03)
[2017-02-24] MEDS: LORATADINE 10 MG TAB PO SCH (08:04)
[2017-02-24] MEDS: METOPROLOL SUCC 50MG EXT REL TAB PO SCH (08:04)
[2017-02-24] MEDS: ASCORBIC ACID 500 MG TAB PO SCH (08:04)
[2017-02-24] MEDS: LACTOBACILLUS ACIDOPHILUS (FLORANEX) TAB PO SCH (08:05)
[2017-02-24] MEDS: FLUTICASONE PROPIONATE NA SPR 16 GM BTL NAE SCH (08:06)
[2017-02-24] MEDS ORDERED: PERFLUTREN LIPID MICROSPHERE (DEFINITY) IV ONE (09:33)
[2017-02-24 09:53] LABS: HEMATOCRIT 43.7 % (37-47); MEAN CELL VOLUME 88.1 fL (80-100); MEAN CORPUSCULAR HEMOGLOBIN 28.2 pg (25-34); MEAN PLATELET VOLUME 8.9 fL (7.4-10.4); PLATELET COUNT 209 K/uL (130-400); RED BLOOD COUNT 4.96 M/uL (4.2-5.4); WHITE BLOOD COUNT 8.79 K/uL (4.8-10.8)
[2017-02-24 10:17] LABS: ESTIMATED AVERAGE GLUCOSE 114 mg/dl; HA1C FLAG Normal (Normal)
--- NOTE | 2017-02-24 10:19 | Family Medicine Progress Note ---
Progress Note Date of Service Feb 24, 2017. Subjective Pt evaluation today including: conversation w/ patient, physical exam, chart review, lab review, review of studies, review of inpatient medication list Pain: positional CP Voiding: no voiding problems No acute events. Patient has Stress Echo today, She still reports Chest pain 1/ 0 triggered by change in position like bending over. Constitutional: + sweats, No fever, No chills Respiratory: No cough, No sputum, No wheezing, No shortness of breath Cardiovascular: + chest pain, No edema, No palpitations Abdomen: No pain, No nausea, No vomiting, No diarrhea, No constipation Female : No dysuria, No urinary frequency Neurologic: No weakness, No numbness/tingling Skin: No rash, No itch, No new/changing skin lesions Medications Current Inpatient Medications Medications (Trade) Dose Ordered Sig/Carissa Route Start Time Stop Time Status Last Admin Dose Admin Heparin Sodium (Porcine) (Heparin Sq 5000 Unit/0.5ml) 5,000 unit Q8 SQ 02/23/17 22:00 03/25/17 21:59 UNV Acetaminophen (Tylenol Tab) 650 mg Q4H PRN PO 02/23/17 20:00 03/25/17 19:59 02/24/17 06:10 650 MG Al Hydrox/Mg Hydrox/Simethicone (Maalox Max Susp) 15 ml Q4H PRN PO 02/23/17 20:00 03/25/17 19:59 Magnesium Hydroxide (Milk Of Magnesia Susp) 30 ml Q12H PRN PO 02/23/17 20:00 03/25/17 19:59 Ondansetron HCl (Zofran Inj) 4 mg Q6H PRN IV 02/23/17 20:00 03/25/17 19:59 Nitroglycerin (Nitrostat Tab) 0.4 mg UD PRN SL 02/23/17 20:00 03/25/17 19:59 02/24/17 01:38 0.4 MG Morphine Sulfate (MoRPHine SULFATE INJ) 2 mg Q30M PRN IV 02/23/17 20:00 03/09/17 19:59 Polyethylene (Miralax Powder Packet) 17 gm DAILY PRN PO 02/23/17 20:00 03/25/17 19:59 Albuterol (Ventolin Hfa Inhaler) 2 puffs Q6H PRN INH 02/23/17 20:00 03/25/17 19:59 Ascorbic Acid (Vitamin C Tab) 500 mg DAILY PO 02/24/17 09:00 03/26/17 08:59 02/24/17 08:04 500 MG Fluticasone Propionate (Flonase Nasal [place]) 2 sprays DAILY JOE 02/24/17 09:00 03/26/17 08:59 02/24/17 08:06 2 SPRAYS Levothyroxine Sodium (Synthroid Tab) 112 mcg DAILYBB PO 02/24/17 06:30 03/26/17 06:29 02/24/17 06:02 112 MCG Loratadine (Claritin Tab) 10 mg DAILY PO 02/24/17 09:00 03/26/17 08:59 02/24/17 08:04 10 MG Metoprolol Succinate (Toprol Xl Tab) 100 mg DAILY PO 02/24/17 09:00 03/26/17 08:59 02/24/17 08:04 100 MG Multivitamins/ Minerals (Multivitamin W/ Minerals Tab) 1 tab DAILY PO 02/24/17 09:00 03/26/17 08:59 02/24/17 08:03 1 TAB Nystatin/ Triamcinolone Acetonide (Mycogen II Oint) 1 appln DAILY PRN EXT 02/23/17 20:00 03/25/17 19:59 am-Taqxd-Jbfkhhvwqe Acetate (Vitamin E Cap) 100 interunit DAILY PO 02/24/17 09:00 03/26/17 08:59 02/24/17 08:03 100 INTERUNIT Lactobacillus Acidophilus (Floranex Tab) 4 tab DAILY PO 02/24/17 09:00 03/26/17 08:59 02/24/17 08:05 4 TAB Miscellaneous (Iv Fluids Completed) 1 ea PRN PRN N/A 02/23/17 21:00 02/23/18 20:59 Objective Vital Signs Date Time Temp Pulse Resp B/P (MAP) Pulse Ox O2 Delivery O2 Flow Rate FiO2 02/24/17 19:06 36.9 82 16 137/84 (101) 95 Room Air 02/24/17 16:00 Room Air 02/24/17 14:59 37.5 76 20 145/86 (105) 95 Room Air 02/24/17 12:00 Room Air 02/24/17 11:09 36.9 81 18 137/91 (106) 95 Room Air 02/24/17 09:06 Room Air 02/24/17 07:14 36.8 69 20 145/92 (109) 96 Room Air 02/24/17 04:05 Room Air 02/24/17 04:00 36.9 72 20 145/85 (105) 94 Room Air 02/24/17 00:05 Room Air 02/23/17 23:56 36.9 67 20 117/70 (86) 95 Room Air 02/23/17 22:32 36.4 73 18 136/81 97 Room Air 02/23/17 21:28 36.6 84 28 144/89 98 02/23/17 21:08 77 23 02/23/17 20:38 78 20 Physical Exam General Appearance: WD/WN, no apparent distress Eyes: normal inspection, PERRL, EOMI Neck: supple, no carotid bruits, trachea midline Respiratory/Chest: lungs clear, normal breath sounds, no respiratory distress Cardiovascular: regular rate, rhythm, no murmur, + pertinent finding ( Tenderness on Palpitation of central chest) Abdomen: normal bowel sounds, non tender, soft Extremities: no pedal edema, no calf tenderness Neurologic/Psychiatric: alert, normal mood/affect Skin: normal color, warm/dry Laboratory Results Results Past 24 Hours Test 02/24/17 01:55 02/24/17 09:39 02/24/17 14:05 02/24/17 19:50 Range/Units Total Creatine Kinase 44 43 42 26-192 U/L Creatine Kinase MB < 0.5 < 0.5 0.7 0.5-3.6 ng/ml Creatine Kinase MB Ratio 1.7 0-3.0 Troponin I 0.028 0.089 0.161 0-0.045 ng/ml White Blood Count 8.79 4.8-10.8 K/uL Red Blood Count 4.96 4.2-5.4 M/uL Hemoglobin 14.0 12.0-16.0 g/dL Hematocrit 43.7 37-47 % Mean Corpuscular Volume 88.1 80-100 fL Mean Corpuscular Hemoglobin 28.2 25-34 pg Mean Corpuscular Hemoglobin Concent 32.0 32-36 g/dl RDW Standard Deviation 42.9 36.4-46.3 fL RDW Coefficient of Variation 13.5 11.5-14.5 % Platelet Count 209 130-400 K/uL Mean Platelet Volume 8.9 7.4-10.4 fL Prothrombin Time 11.0 9.0-12.0 SECONDS Prothromb Time International Ratio 1.0 0.9-1.1 Sodium Level 141 136-145 mmol/L Potassium Level 4.0 3.5-5.1 mmol/L Chloride Level 106 98-107 mmol/L Carbon Dioxide Level 24 21-32 mmol/L Anion Gap 11.0 3-11 mmol/L Blood Urea Nitrogen 12 7-18 mg/dl Creatinine 1.00 0.60-1.20 mg/dl Est Creatinine Clear Calc Drug Dose 82.0 ml/min Estimated GFR () 71.9 Estimated GFR (Non- 62.1 BUN/Creatinine Ratio 12.3 10-20 Random Glucose 101 70-99 mg/dl Estimated Average Glucose 114 mg/dl Hemoglobin A1c 5.6 4.5-5.6 % Calcium Level 9.2 8.5-10.1 mg/dl Triglycerides Level 82 0-150 mg/dl Cholesterol Level 253 0-200 mg/dl HDL Cholesterol 72 mg/dl LDL Cholesterol, Calculated 165 mg/dl VLDL Cholesterol, Calculated 16 mg/dl Cholesterol/HDL Ratio 3.5 Thyroid Stimulating Hormone (TSH) 3.460 0.300-4.500 uIu/ml Assessment and Plan 56 yo F p/w with 1 day hx of intermittent positional 8/10 squeezing chest pain found to have mildly elevated troponin trending upwards Chest Pain, Elevated troponin ddx: Pericarditis a possibility given positional nature , elevated troponin, and preceding illness. can't completely rule out ACS but her presentation is highly atypical; demand ischemia although given her echo, it would seem unlikely improved, 09/15 , triggered by palpation of chesta and certain positions like bending over Serial cardiac enzymes Echo (02/24) : -Left ventricular systolic function is normal. -Grade I diastolic dysfunction, (abnormal relaxation pattern). Consult Cardiology HTN -Continue metoprolol Hypothyroidism -Continue Synthroid Essential Tremor -followed outpatient (Dr. Mohamud) Asthma/Allergies -Continue Claritin Resident Physician Supervision Note: I was present with Dr. Royal during the history and exam. I discussed the case with the resident and agree with the findings and plan as documented in the note. Any exceptions or clarifications are listed here: Please see my additional documentation in a separate progress note of the same date. Documented By: Marcos Akbar Continued [facility] stay due to: other (abnormal labs) Discharge planning: home Resident Tracking Resident Involvement: Resident Care Provided Care Provided: Adult Hospital Medicine
[2017-02-24 10:20] LABS: BLOOD UREA NITROGEN 12 mg/dl (7-18); BUN/CREATININE RATIO 12.3 (10-20); CALCIUM 9.2 mg/dl (8.5-10.1); CARBON DIOXIDE 24 mmol/L (21-32); CHLORIDE 106 mmol/L (98-107); CHOLESTEROL 253 mg/dl (0-200); GLUCOSE 101 mg/dl (70-99); SODIUM 141 mmol/L (136-145)
[2017-02-24 10:53] LABS: CHOLESTEROL/HDL RATIO 3.5; HDL CHOLESTEROL 72 mg/dl; LDL CHOLESTEROL CALCULATED 165 mg/dl; TRIGLYCERIDES 82 mg/dl (0-150); VERY LOW DENSITY LIPOPROT CALC 16 mg/dl
--- NOTE | 2017-02-24 13:15 | EXERCISE STRESS ECHO ---
*NOTICE TO RECEIVING DEMOCRAT AGENCY This information is strictly Confidential and protected under [place] law. [place] law prohibits you from making any further disclosure of this information unless further disclosure is expressly permitted by the written consent of the person to whom it pertains or is authorized by law. A general authorization for the release of medical or other information is not sufficient for this purpose. Hospital accepts no responsibility if the information is made available to any other person, INCLUDING THE PATIENT. Interpretation Summary * Name: REGINO SHAH Study Date: 02/24/2017 08:27 AM BP: 162/91 mmHg * Patient Location: [facility]\S\N276\S\2 HR: 75 * : 1960 (M/d/yyyy) Gender: Female Height: 72 in * Age: 56 yrs Ethnicity: [place] Weight: 225 lb * Ordering Physician: Kenny Angelo * Performed By: Leta Ibarra * * Reason For Study: CHEST PAIN * BSA: 2.2 m2 * -- Conclusions -- * Left ventricular systolic function is normal. * Grade I diastolic dysfunction, (abnormal relaxation pattern). * The right ventricular systolic function is reduced as assessed by tricuspid annular plane systolic excursion (TAPSE) (TAPSE <1.6 cm). * Diagnostic stress echocardiogram without evidence of inducible ischemia Procedure Details * ECHOEX, CPT #81223 * ECHO DOPPLER, CPT #28023 * ECHO COLOR FLOW, CPT #[id number] * A contrast injection of Definity was performed to improve assessment of LV function. * Contrast was injected into an intravenous site in the left arm. * One vial of Definity ultrasound contrast was diluted in normal saline to a total volume of 10 ml. A total of '4' ml of solution was administered during imaging. * Lot # [id number] of Definity utilized for procedure. * Expiration date 03/23. * The attending nurse who injected the contrast agent was JADEN WONG RN. Left Ventricular Findings with Stress * Diagnostic stress echocardiogram without evidence of inducible ischemia Left Ventricle * The left ventricle is normal in size. * There is normal left ventricular wall thickness. * Ejection Fraction = 65-70%. * Left ventricular systolic function is normal. * Grade I diastolic dysfunction, (abnormal relaxation pattern). * The left ventricular wall motion is normal. Right Ventricle * The right ventricle is grossly normal size. * The right ventricular systolic function is reduced as assessed by tricuspid annular plane systolic excursion (TAPSE) (TAPSE <1.6 cm). Atria * The left atrial size is normal. * Right atrial size is normal. Mitral Valve * The mitral valve is grossly normal. * Significant mitral regurgitation is absent. Tricuspid Valve * The tricuspid valve is not well visualized, but is grossly normal. * Significant tricuspid regurgitation is absent. Aortic Valve * The aortic valve is normal in structure and function. * No hemodynamically significant valvular aortic stenosis. * No aortic regurgitation is present. Pericardium * There is no pericardial effusion. Stress Parameters * Normal baseline electrocardiogram. * Stress ECG: No ST changes. No arrhythmias. * Rest heart rate was '75' BPM. * Rest blood pressure was '162/91' * Maximum heart rate achieved was 141 bpm. * Maximum heart rate was 87 % of maximum age-predicted heart rate. * Maximum blood pressure was '183/59' * Total exercise time was '6:05' * Maximum exercise MET level achieved was '7.10' METS * Maximum treadmill speed was '3.40' miles per hour. * Maximum treadmill elevation was '14.00'% grade. * Exercise was terminated due to 'dyspnea' * The patient exhibited dyspnea during exercise. * Normal blood pressure response to exercise. * Exercise was stopped due to dyspnea. Left Ventricular Findings with Stress * Normal baseline EKG without EKG changes during exercise. Normal baseline echocardiogram with normal augmentation and no new wall motion abnormalities during exercise. Hypertensive at baseline with normal BP response to excercise. No symptoms reported Baker treadmill score: 6 (low risk) MMode 2D Measurements and Calculations IVSd 1.2 cm IVSs 2.0 cm LVIDd 4.6 cm LVIDs 2.8 cm LVPWd 0.97 cm LVPWs 1.9 cm IVS/LVPW 1.3 FS 38.8 % EDV(Teich) 98.2 ml ESV(Teich) 30.2 ml EF(Teich) 69.2 % EDV(cubed) 98.4 ml ESV(cubed) 22.6 ml EF(cubed) 77.0 % % IVS thick 63.3 % % LVPW thick 94.5 % LV mass(C)d 181.6 grams LV mass(C)dI 81.1 grams/m\S\2 LV mass(C)s 233.3 grams LV mass(C)sI 104.2 grams/m\S\2 CO(Teich) 4.5 l/min CI(Teich) 2.0 l/min/m\S\2 SV(Teich) 67.9 ml SI(Teich) 30.3 ml/m\S\2 CO(cubed) 5.1 l/min CI(cubed) 2.3 l/min/m\S\2 SV(cubed) 75.8 ml SI(cubed) 33.8 ml/m\S\2 ACS 1.6 cm LA dimension 3.9 cm asc Aorta Diam 3.1 cm LVOT diam 1.8 cm LVOT area 2.5 cm\S\2 LVAd ap4 26.9 cm\S\2 LVLd ap4 7.5 cm EDV(MOD-sp4) 79.0 ml LVAs ap4 13.5 cm\S\2 LVLs ap4 6.1 cm ESV(MOD-sp4) 25.0 ml EF(MOD-sp4) 68.4 % LVAd ap2 22.0 cm\S\2 LVLd ap2 6.8 cm EDV(MOD-sp2) 60.0 ml LVAs ap2 11.5 cm\S\2 LVLs ap2 6.0 cm ESV(MOD-sp2) 20.0 ml EF(MOD-sp2) 66.7 % CO(MOD-sp4) 3.6 l/min CI(MOD-sp4) 1.6 l/min/m\S\2 SV(MOD-sp4) 54.0 ml SI(MOD-sp4) 24.1 ml/m\S\2 CO(MOD-sp2) 2.7 l/min CI(MOD-sp2) 1.2 l/min/m\S\2 SV(MOD-sp2) 40.0 ml SI(MOD-sp2) 17.9 ml/m\S\2 Doppler Measurements and Calculations MV E max petey 74.0 cm/sec MV A max petey 82.4 cm/sec MV E/A 0.90 MV dec time 0.22 sec Ao V2 max 122.6 cm/sec Ao max PG 6.0 mmHg Ao max PG (full) 1.5 mmHg DOROTHY(V,A) 2.2 cm\S\2 DOROTHY(V,D) 2.2 cm\S\2 LV V1 max PG 4.5 mmHg LV V1 max 106.1 cm/sec PA V2 max 71.6 cm/sec PA max PG 2.0 mmHg
[2017-02-24] MEDS: HEPARIN SOD 5000 UNIT/0.5 ML CARP SQ SCH ×2 (14:08→20:50)
[2017-02-24 14:51] LABS: CKMB/CK RATIO 1.7 (0-3.0)
--- NOTE | 2017-02-24 15:09 | Discharge Instructions ---
Discharge Instructions Date of Service Feb 24, 2017. Admission Reason for Admission: Chest Pain Discharge Discharge Diagnosis / Problem: Chest pain rule out Discharge Goals Goal(s): Improve disease control Activity Recommendations Activity Limitations: resume your previous activity Increase your exercise amount - 30 minutes per day, 5 times per week Follow up with your PCP within a week. Discuss your cholesterol level with your PCP . Instructions / Follow-Up Instructions / Follow-Up Home Care: * Take your medications exactly as directed. Don't skip doses. * Remember that recovery after a heart attack takes time. Plan to rest for at lease 4-8 weeks while you recover. Then return to normal activity when your doctor says it's okay. * Ask your doctor about joining a heart rehabilitation program. * Tell your doctor if you are feeling depressed. Feelings of sadness are common after a heart attack, but it is important that you speak to someone if you are feeling overwhelmed by these feelings. * If you are having chest pain, call 911 for an ambulance. Do NOT drive yourself to the hospital. * Ask your family members to learn CPR. * Learn to take your own blood pressure and pulse. Keep a record of your results. Ask your doctor when you should seek emergency medical attention. He or she will tell you which blood pressure reading is dangerous. Lifestyle Changes: * Maintain a healthy weight. Get help to lose any extra pounds. * Cut back on salt. * Limit canned, dried, packaged, and fast foods. * Don't add salt to your food. * Season foods with herbs instead of salt when you cook. * Break the smoking habit. Enroll in a stop-smoking program to improve your chances of success. * Limit fatty foods. * Check your lipid levels regularly. (Your doctor can show you how to do this.) * Build up your activity according to your doctor's recommendation. * Ask your doctor when it's okay to resume sexual activity. * Tell your doctor about any erectile dysfunction (ED) medication you are taking. Some ED medications are not safe if you take certain heart medications. * Try to manage stress. Follow Up: It is important for you to keep your follow up appointments with your medical provider. Current Hospital Diet Patient's current hospital diet: Regular Diet, AHA Diet (Heart Healthy) Discharge Diet Recommended Diet: AHA Diet (Heart Healthy) Pending Studies Studies pending at discharge: no Laboratory Results Hemoglobin A1c Test 02/24/17 09:39 Range/Units Estimated Average Glucose 114 mg/dl Hemoglobin A1c 5.6 4.5-5.6 % Lipid Panel Test 02/24/17 09:39 Range/Units Triglycerides Level 82 0-150 mg/dl Cholesterol Level 253 H 0-200 mg/dl HDL Cholesterol 72 mg/dl Cholesterol/HDL Ratio 3.5 LDL Cholesterol, Calculated 165 mg/dl Medical Emergencies . Who to Call and When: Medical Emergencies: If at any time you feel your situation is an emergency, please call 911 immediately. Call 911 immediately or go to your nearest Emergency Room if you experience any of the following: Warning Signs and Symptoms of a Heart Attack * Chest pain that is not relieved by medication * Shortness of breath . Non-Emergent Contact Non-Emergency issues call your: Primary Care Provider . . "Provider Documentation" section prepared by Analia Weldon. . AMI Core Measures Reason no ASA as I/P: Treatment not indicated Reason no ASA at D/C: Treatment not indicated Reason no statin as I/P: Treatment not indicated Reason no statin at D/C: Treatment not indicated (ASCVD risk low) VTE Core Measure Inpt VTE Proph given/why not?: Enoxaparin (Lovenox)SQ
--- NOTE | 2017-02-24 18:38 | Progress Note ---
Progress Note Date of Service Feb 24, 2017. Progress Note Resident Physician Supervision Note: I interviewed and examined the patient. Discussed with Dr. Royal and agree with findings and plan as documented in his separate note. Any exceptions or clarifications are listed here: I saw the patient both with Dr. Royal this morning and by myself later this afternoon. Stress echocardiogram reassuring, however patient with intermittent chest discomfort (at rest, and interestingly, not during the stress test). She also had a small troponin elevation. Cardiology was able to see the patient late this afternoon at our request, and I was able to discuss a plan with them today as well. By history, the patient was seen by her PCP after she developed some neck swelling. A mono spot was performed - negative, and she was also treated with Zithromax (she has one day remaining). With the continued discomfort - but normal stress test and low-risk sound of her history - it raises the question of a viral infection/viral pericarditis. As such, will trial NSAIDs and continue to observe. IMPRESSION 1) Chest pain, question pericarditis 2) Reassuring stress echo 3) Preceding viral illness by history 4) Negative CT scan for PE. PLAN 1) Ibuprofen 600 mg 2) PPI for stomach protection 3) Trend troponin overnight 4) Complete Zithromax as ordered by PCP. Documented By: Marcos Akbar
[2017-02-24] MEDS ORDERED: AZITHROMYCIN 250 MG TAB PO ONE (19:15)
[2017-02-24] MEDS: PANTOprazole SOD 40 MG TAB PO SCH (19:43)
[2017-02-24] MEDS: IBUPROFEN 600 MG TAB PO SCH (19:44)
[2017-02-24 20:22] LABS: CKMB/CK RATIO 2.2 (0-3.0)
--- NOTE | 2017-02-24 21:12 | CARDIOLOGY CONSULTATION ---
DATE OF CONSULTATION: 02/24/2017 REFERRING PHYSICIAN: Dr. Hao Easton. CHIEF COMPLAINT: Chest pain. HISTORY OF PRESENT ILLNESS: Mrs. Naomi Santiago is a 56-year-old woman without a known history of cardiac disease who has been experiencing symptoms of chest discomfort for several days. The patient's symptoms all began after a recent massage, patient was out of town and returned with swelling in her neck. The patient also had some mild upper respiratory symptoms and based on her condition was placed on antibiotic therapy. She states that around that time she did develop some sensation of a chest discomfort that was epigastric in nature. The patient awoke 2 nights ago with symptoms of significant chest discomfort that was precordial, it was somewhat pleuritic in nature and did not entirely resolve. Following morning she presented to her PCPs office for routine evaluation and based on her symptoms were sent to [facility] for imaging studies. The patient underwent CT PE protocol at that institution which did not reveal any evidence of pulmonary embolus or other acute intrathoracic pathology. The patient had persistent symptoms and was advised to go to [facility] for an additional evaluation. Over the course of her hospitalization, the patient did experience another episode of severe chest discomfort last evening. She states that this occurred while she was rolling on to her left side, when she rolled back on to her back, the symptoms persisted, however, she was administered nitroglycerin without relief. Tylenol, however, did provide relief. She states once again that the symptoms had never entirely abated for several days. This morning the patient underwent exercise echocardiography. She states that she felt good during her exercise testing and had no worsening of her chest discomfort. She had mild dyspnea which resulted in termination of the test. Generally speaking, she is an active individual who is able to perform routine activities without limitation; however, she does not perform routine exercise. This is by choice. She has rare dizziness or lightheadedness. She has not suffered a syncopal episode. She denies any sense of palpitations or racing heartbeats. She generally claims to be sleeping well. In the past, she has had symptoms of gastroesophageal reflux disease, but this was in the setting of nonsteroidal use. She had taken Prilosec for a brief period of time but has not taken it recently. PAST MEDICAL HISTORY: Significant for gastroesophageal reflux disease, allergic rhinitis, history of anxiety, uterine bleeding, hyperlipidemia, hypertension, hypothyroidism status post partial thyroidectomy, leiomyomas and benign tremor. PAST SURGICAL HISTORY: Significant for Bartholin's glands abscess drainage and partial thyroidectomy. OUTPATIENT MEDICATIONS: Include Synthroid, metoprolol, Prilosec, and Ventolin on a p.r.n. basis. FAMILY HISTORY: Not significant for premature coronary disease. SOCIAL HISTORY: The patient denies significant alcohol abuse. She is a lifelong nonsmoker and currently employed as a teacher. She is . Her first had significant cardiac disease. REVIEW OF SYSTEMS: A complete review of systems was performed and the pertinent positives noted in the history of present illness, the remainder being negative. PHYSICAL EXAMINATION: GENERAL: The patient does not appear in acute distress. She is a pleasant individual who is alert and oriented. Mood and affect appeared normal. She answered all questions appropriately. VITAL SIGNS: Include blood pressure 145/86 with a pulse of 76. HEENT: Her sclerae are anicteric. Her pupils equal, reactive to light and accommodation. Extraocular movements were intact. NECK: Palpation of submandibular region did not reveal any significant lymphadenopathy. There is some mild tenderness under the right mandible, but no palpable lymphadenopathy. Carotids are palpable bilaterally. I do not appreciate any bruits on auscultation. There is no evidence of jugular venous distention. Thyroid is not enlarged. She had a well-healed thyroidectomy scar. NEUROLOGIC: Cranial nerves appeared to be intact. She did have a benign tremor in both the right hand and right leg. LUNGS: Auscultation of her lungs revealed them to be clear. There were no rales, wheezes or rhonchi. She had good respiratory effort without use of accessory muscles. CARDIAC: Revealed her to be in a regular rhythm and I do not appreciate any murmurs on exam. S1, S2 appear to be normal and PMI is not markedly displaced with palpation. Pressing on her sternum did not reproduce her symptoms. ABDOMEN: Soft and nontender. EXTREMITIES: Evaluation of both wrists revealed radial pulses were equal in intensity. There is no evidence of cyanosis or clubbing. Evaluation of lower extremities did not reveal any significant peripheral edema. SKIN: There are no rashes observed on examination today. LABORATORY STUDIES: Include a white cell count of 8.7, hemoglobin of 14, a platelet count of 209. Sodium was 141, potassium is 4.0, BUN was 12, creatinine was 1. Serial cardiac biomarkers were obtained, the most recent which was 0.16. Initial biomarkers were normal. Single view chest x-ray had been obtained at the time of admission which did not reveal any evidence of acute cardiopulmonary disease. I reviewed the patient's outpatient records including the results of her CT scan performed at [facility]. This did not reveal any evidence of pulmonary embolus. I reviewed the patient's stress echocardiogram from earlier today, this does not reveal any evidence of inducible ischemia. She had preserved LV systolic function and no significant valvular heart disease. EKGs were obtained during the patient's admission which did not reveal any significant abnormalities. She had normal sinus rhythm and this was essentially normal EKG. ASSESSMENT AND PLAN: 1. Chest pain: The patient's symptoms are atypical for an acute coronary syndrome. There is a positional and pleuritic nature to her symptoms. They are also very longstanding without abatement for several days. Her initial cardiac biomarkers are normal but now mildly elevated. Total CKs are also normal. EKG is unchanged and her stress echocardiogram was normal with good exercise tolerance in the absence of worsening symptoms. I think we can confidently says she does not have significant coronary disease or an acute coronary syndrome. The elevated biomarkers are concerning but of unclear etiology. This possibly represents some form of inflammatory process. I do not feel that she likely has coronary spasm as this will likely be severe and more apparent given her event last evening in the hospital. At this juncture, it would seem reasonable to try empiric nonsteroidal medications along with Prilosec. Given the fact that her last cardiac biomarkers was the most elevated, it would seem reasonable to continue to trend these markers and maker sure they are resolving prior to discharge. The patient is under a lot of stress recently and she reports reacting adversely to stress on occasion, small possibility this represents some form of stress induced elevation; however, once again, her echocardiogram was normal and she has no significant EKG changes making this less likely.
[2017-02-25] MEDS: ACETAMINOPHEN 325 MG TAB PO PRN (03:03)
[2017-02-25 03:45] VITALS: BP 111/73; PULSE 78; TEMP 37; O2SAT 94
[2017-02-25] MEDS: HEPARIN SOD 5000 UNIT/0.5 ML CARP SQ SCH (05:47)
[2017-02-25] MEDS: LEVOTHYROXINE 112 MCG TAB PO SCH (05:48)
[2017-02-25 07:01] VITALS: BP 107/70; PULSE 76; TEMP 37; O2SAT 94
[2017-02-25 07:34] LABS: HEMATOCRIT 39.3 % (37-47); MEAN CELL VOLUME 87.1 fL (80-100); MEAN CORPUSCULAR HEMOGLOBIN 28.6 pg (25-34); MEAN CORPUSCULAR HGB CONC 32.8 g/dl (32-36); MEAN PLATELET VOLUME 9.2 fL (7.4-10.4); PLATELET COUNT 203 K/uL (130-400); RED BLOOD COUNT 4.51 M/uL (4.2-5.4)
[2017-02-25 08:08] LABS: BUN/CREATININE RATIO 15.1 (10-20); CREATININE 0.81 mg/dl (0.60-1.20)
[2017-02-25] MEDS: FLUTICASONE PROPIONATE NA SPR 16 GM BTL NAE SCH (08:24)
[2017-02-25] MEDS: LACTOBACILLUS ACIDOPHILUS (FLORANEX) TAB PO SCH (08:25)
[2017-02-25] MEDS: LORATADINE 10 MG TAB PO SCH (08:25)
[2017-02-25] MEDS: METOPROLOL SUCC 50MG EXT REL TAB PO SCH (08:25)
[2017-02-25] MEDS: CEROVITE ADV FORMULA TAB PO SCH (08:25)
[2017-02-25] MEDS: ASCORBIC ACID 500 MG TAB PO SCH (08:26)
[2017-02-25] MEDS: PANTOprazole SOD 40 MG TAB PO SCH (08:26)
[2017-02-25] MEDS: TOCOPHERYL, DL-ALPHA 100 INTERUNIT CAP PO SCH (08:27)
[2017-02-25] MEDS: IBUPROFEN 600 MG TAB PO SCH (08:27)
[2017-02-25 08:39] LABS: CALCIUM 8.5 mg/dl (8.5-10.1)
[2017-02-25 11:17] VITALS: BP 124/83; PULSE 82; TEMP 36.6; O2SAT 94
[2017-02-25] MEDS ORDERED: FLUC150T PO (11:50)
[2017-02-25] MEDS ORDERED: MTR600 PO (11:50)
[2017-02-25 12:11] VITALS: BP 124/83; PULSE 82; TEMP 36.6; O2SAT 94
--- NOTE | 2017-02-26 06:25 | Discharge Summary ---
Discharge Summary Date of Service Feb 26, 2017. (James Royal MD) Discharge Summary Admission Date: Feb 23, 2017 at 19:57 Discharge Date: Feb 24, 2017 Discharge Disposition: Home Principal Diagnosis: Chest Pain Problems/Secondary Diagnoses: HTN Procedures: Stress Echocardiogram: Left ventricular systolic function is normal. Grade I diastolic dysfunction, (abnormal relaxation pattern). The right ventricular systolic function is reduced as assessed by tricuspid annular plane systolic excursion (TAPSE) (TAPSE <1.6 cm). Diagnostic stress echocardiogram without evidence of inducible ischemia CHEST ONE VIEW PORTABLE HISTORY: Atypical CHEST PAIN COMPARISON: Chest CTA 02/23/2017. FINDINGS: The lungs are clear. Cardiac silhouette is normal in size. No pleural effusions. No pneumothorax. Moderate S-shaped scoliosis. IMPRESSION: No acute process. Consultations: Cardiology (James Royal MD) Medication Reconciliation New Medications: Fluconazole (Diflucan) 150 Mg Tab 150 MG PO DIRECTED PRN for once for 1 Day, #1 TAB Ibuprofen (Ibuprofen) 600 Mg Tab 600 MG PO TID for 10 Days, #30 TAB Continued Medications: Albuterol Hfa (Ventolin Hfa) 200 Puffs/22654 Mcg Aers 2 PUFFS INH Q6H PRN for SOB/Wheezing, #1 INHALER Ascorbic Acid (Vitamin C) 500 Mg Tab 500 MG PO DAILY Fluticasone Propionate (Nasal) (Flonase Allergy Relief Ch) 50 Mcg/Act Spr 2 SPRAYS JOE DAILY Levothyroxine Sodium (Synthroid) 112 Mcg Tab 112 MCG PO DAILY Loratadine (Claritin) 10 Mg Tab 10 MG PO DAILY, TAB Metoprolol Succ (Toprol Xl) (Toprol-Xl ) 100 Mg Tabcr 100 MG PO DAILY, TAB Multiple Vitamins W/ Minerals (Centrum Silver Ultra Wome) 1 Tab Tab 1 TAB PO DAILY Nystatin-Triamcinolone (Nystatin/Triamcinolone) 1 Oin Oin 1 APPLN EX DAILY PRN for VAGINALLY for 5 Days, #15 GM Probiotic Product (Fortify Daily Probiotic) 1 Cap Cap 1 CAP PO DAILY Tocopheryl Acet,Dl-Alpha (Vitamin E) 100 Interunit Cap 100 INTER.UNIT PO DAILY Discontinued Medications: Azithromycin (Zithromax Z-Fabricio) 250 Mg Tab 1 PKT PO UD for 5 Days, #6 TAB Discharge Exam Physical Exam: General Appearance: WD/WN, no apparent distress Eyes: normal inspection, PERRL, funduscopic exam normal Neck: supple, no adenopathy, trachea midline Respiratory/Chest: chest non-tender, lungs clear, normal breath sounds, no respiratory distress Cardiovascular: regular rate, rhythm, no edema, no murmur Abdomen / GI: normal bowel sounds, non tender, soft Extremities: no calf tenderness, no pedal edema Neurologic/Psychiatric: alert, normal mood/affect, oriented x 3 Skin: normal color, warm/dry, no rash Lymphatic: no adenopathy (James Royal MD) Hospital Course HPI This pleasant 56-year-old female with a history of hypertension but otherwise no cardiac history who presents to the emergency department with 1 day of sudden onset chest pain. She states that last week she was in [place] at a spa retreat and stated that she gotten the deep tissue massage in her neck she returned home approximately 5 days ago. Upon her return she felt generalized swelling and mild tenderness bilaterally in her neck with a small degree of lightheadedness, weakness and generalized aches. Over proximal with 72 hours the neck symptoms improved and the swelling she feels came down. She states a remote history of TMJ syndrome, however it has not caused her problems for many many years. She denies any history with swallowing or chewing, and did not have the sense of her throat closing off. For the past 2 nights however, she has been waking up in the middle the night with this mild degree of chest pressure as well as feeling sweatiness across her sternum only and nowhere else. She had notified her PCP of the symptoms PCP and started her on a five-day course of azithromycin (she currently only has one day left). She'll that she did have some slight improvement, however early this morning at approximately 01:30 a.m., she developed more severe 8/10 central chest pressure squeezing that she states have some slight radiation to her left arm and hand. She denies any orthopnea, shortness of breath, palpitations or lower extremity edema. She states that she felt cold and tremors, though had no fevers. After roughly 30 minutes, she is able to get back to sleep. This morning after she woke she states that the pain was 80% better, but she made her appointment with her PCP to follow up. PCP did an EKG in the office, which was reported to be normal PCP. She also had lab work done at an outside hospital. A Monospot was negative. The d-dimer was elevated however at's 0.63. As such the PCP refer the patient to [facility] for CT evaluation for pulmonary embolism. The CT was done this afternoon and was reported as negative. However the patient continued to complain of chest pressure, 5/6 centrally in the sternum, and after she called her PCP she was instructed to go to the ED for further evaluation. In the ED the patient was given ASA 325, 0.4 mg sublingual nitrate. An initial troponin level was negative. EKG was done which showed some T-wave inversion in V1 and V2, though there is no prior EKG for comparison.Otherwise, the patient does state that she's had some degree of stress in the past few days. She makes note of her previous who had committed suicide 9 years ago and this does cause her some stress. No addition her classer had recently . Course: IN ED Patient was found to have EKG NSR, with Twave inversion in V1, V2. She was given NG and ASA 324. Initial troponin was negative. Patient was admitted for Cheat pain rule out . During her stay, troponin began to rise from .161 to .426. Stress echo was ordered showing no evidence of inducible ischemia. Cardiology was consulted. It was not immediately clear what the etiology was of her elevated troponin. ACS was unlikely given the stress test results. Patient was treated empirically with Ibuprofen for a potential inflammatory process . During her hospital she did get relief and troponin levels began to trend down. She was eventually discharged with Ibuprofen. Total Time Spent: Less than 30 minutes This includes examination of the patient, discharge planning, medication reconciliation, and communication with other providers. (James Royal MD) Resident Physician Supervision Note: I was present with Dr. Royal during the history and exam. I discussed the case with the resident and agree with the findings and plan as documented in the note. Any exceptions or clarifications are listed here: The patient noted relief of her symptoms with nonsteroid anti-inflammatories. Her reproducible discomfort and normal stress test both favor a noncardiac (coronary) etiology. It is noted that the symptoms started shortly after a viral infection - it is conceivable that she had a mild pericarditis secondary to her viral infection, as this would be consistent with a minimal troponin elevation like she had. Discussed using ibuprofen for the next 5-7 days; she will take [id number] omeprazole which she has at home during the time that she is on the ibuprofen for gastrointestinal protection. We discussed the signs and symptoms of acute coronary syndrome and had a difficult her presentation; if should have any the signs or symptoms, she is otherwise ago to the emergency department by way of EMS. It is also recommended to follow-up with her primary care provider early next week for recheck. Documented By: Marcos Akbar Total Time Spent: Less than 30 minutes (Marcos Akbar.,D.O.) Discharge Instructions Please refer to the electronic Patient Visit Report (Discharge Instructions) for additional information. (James Royal MD) Additional Copies To Kadie Alberts M.D.
[2017-06-30] MEDS ORDERED: METO100T44 PO (17:20)
[2017-06-30] MEDS ORDERED: MULT-614 PO (17:20)
[2017-06-30] MEDS ORDERED: FLUT1SPR12 NAE (17:20)
[2017-06-30] MEDS ORDERED: SYN112 PO (17:20)
[2017-06-30] MEDS ORDERED: ASCA500 PO (17:20)
[2017-06-30] MEDS ORDERED: VNTHFA/IN INH (17:42)
== END 2017-02-25 12:45 | disposition home or self-care (01) ==
LOC: C.EDB 17:03 → C.MED 19:57 → ENRESERV 21:06
PROVIDERS: ADMIT Student in an Organized Health Care Education/Training Program; ATTEND Family Medicine
DX: R07.9 Chest pain, unspecified (principal); I10 Essential (primary) hypertension; J45.20 Mild intermittent asthma, uncomplicated; E89.0 Postprocedural hypothyroidism; K21.9 Gastro-esophageal reflux disease without esophagitis; E78.5 Hyperlipidemia, unspecified; G25.0 Essential tremor; J30.9 Allergic rhinitis, unspecified; G25.81 Restless legs syndrome; Z79.899 Other long term (current) drug therapy

== ENCOUNTER → 2017-02-23 | Outpatient (CLI) | payer BC ==
[~2017-02-23] MED LIST changes: +AMOX500C3 PO; +CAMPOIN7 TOP; +CETI10TA84 PO; +FLUT1INH INH; +HYDR5SYP11 PO; +LACT10CA3 PO; +METO100T44 PO; -METO1TAB69 PO; +MONT1TAB3 PO; +NF656 TD; +OMEG10007 PO; +OPTIRAY 320 IV PRN; +PRIM50TA29 PO; +ROSU5TAB PO
--- NOTE | 2017-02-23 15:08 | DIAGNOSTIC IMAGING REPORT ---
CHEST CTA for PULMONARY ARTERIES CT DOSE: 532.42 mGycm HISTORY: Dyspnea CHEST PAIN, R/O PE TECHNIQUE: Multiaxial CT images of the chest were performed following the intravenous administration of contrast to evaluate the pulmonary arteries. Maximal intensity projection images were also obtained. COMPARISON STUDY: None. FINDINGS: There is a normal caliber thoracic aorta with no evidence for dissection. There is no evidence for pulmonary embolus. No pleural effusions. No pneumothorax. The liver and spleen are unremarkable. No mediastinal or hilar lymphadenopathy. The central airways are patent. The lungs are clear. IMPRESSION: No evidence for pulmonary embolus. Lungs are clear. Electronically signed by: Raji Perez M.D. 02/23/2017 3:07 PM Dictated Date/Time: 02/23/2017 3:04 PM
== END | disposition home or self-care (01) ==
LOC: C.CTS 14:28
PROVIDERS: ATTEND Family Medicine
DX: R07.9 Chest pain, unspecified (principal); R79.89 Other specified abnormal findings of blood chemistry

== ENCOUNTER → 2017-05-31 | Outpatient (CLI) | payer BC ==
[~2017-05-31] MED LIST changes: -ACET-1256 PO; +ASCA500 PO; -AZITTAB PO; +FLUT1SPR12 NAE; +METO1TAB69 PO; +MTR600 PO; +MULT-614 PO; +NYSTOIN EX; -PRLSR20 PO; +SYN112 PO; +VNTHFA/IN INH
== END | disposition home or self-care (01) ==
LOC: C.PAPS 11:51
PROVIDERS: ATTEND Obstetrics & Gynecology
DX: Z01.419 Encounter for gynecological examination (general) (routine) without abnormal findings (principal)

== ENCOUNTER 2017-06-30 18:48 | Emergency (ER) | payer BC ==
[~2017-06-30] VITALS: Ht 177.8 cm; Wt 91.0 kg
[~2017-06-30 18:48] MED LIST changes: +METO100T44 PO; -METO1TAB69 PO
[2017-06-30] MEDS ORDERED: HYDROmorphone INJ 1 MG/ML SYR IV STA (18:53)
[2017-06-30] MEDS ORDERED: ONDANSETRON INJ 2 MG/ML 2 ML VIAL IV STA (18:53)
[2017-06-30] MEDS ORDERED: LIDODERM (LIDOCAINE) PATCH 5% TD STA (19:01)
[2017-06-30] MEDS ORDERED: KETOROLAC TROMETHAMINE 30 MG/ML VIAL IV STA (19:04)
--- NOTE | 2017-06-30 19:04 | EMERGENCY ROOM VISIT NOTE ---
History Report prepared by Yinka: Graham Batista Under the Supervision of: Dr. Fahad Terrell M.D. First contact with patient: 18:50 Chief Complaint: RIB PAIN Stated Complaint: RIB PAIN History of Present Illness The patient is a 56 year old female who presents to the Emergency Room with complaints of constant sharp lower rib pain beginning an hour ago. The patient states that she has had mild lower chest pain for the past few days. She notes that an hour ago, she felt a "popping" that was accompanied with sharp excruciating pain along her right side. She reports that the pain worsens with deep breaths. The patient states that she is also experiencing symptoms of nausea but denies any abdominal pain. She notes that she has also recently been diagnosed with bronchitis. Source of History: patient Onset: an hour ago Position: other (right lower rib) Symptom Intensity: excruciating Quality: sharp Timing: constant Modifying Factors (Worsening): breathing Associated Symptoms: + nausea, No abdominal pain Review of Systems See HPI for pertinent positives & negatives. A total of 10 systems reviewed and were otherwise negative. Past Medical & Surgical Medical Problems: (1) Asthma (2) Chest pain (3) Cystitis (4) Essential tremor (5) HTN (hypertension) (6) Seasonal allergies (7) Tenderness of neck (8) Vertigo Surgical Problems: (1) History of thyroidectomy, subtotal Family History FH: cancer FH: gallbladder disease Social History Smoking Status: Never Smoker Alcohol Use: occasionally Drug Use: none Marital Status: Housing Status: lives with family Occupation Status: employed Current/Historical Medications Scheduled Amoxicillin (Amoxil), 500 MG PO TID Ascorbic Acid (Vitamin C), 500 MG PO DAILY Hondcnd-Cjtqfqyvwm-Ctgsdjc (Vicks Vaporub), 1 APPLN TOP UD Cetirizine (Zyrtec), 10 MG PO DAILY Fish Oil (Flint-3), 1 CAP PO DAILY Fluconazole (Diflucan), 150 MG PO 3XWK Fluticasone Furoate-Vilanterol (Breo Ellipta), 1 PUFF INH DAILY Fluticasone Propionate (Nasal) (Flonase Allergy Relief Ch), 2 SPRAYS JOE DAILY Lactobacillus-Inulin (Culturelle), 1 CAP PO DAILY Levothyroxine Sodium (Synthroid), 112 MCG PO DAILY Lidocaine (Lidoderm Patch 5%), 1 PATCH TD DAILY Metoprolol Succ (Toprol Xl) (Toprol-Xl ), 100 MG PO DAILY Montelukast Sodium (Singulair), 10 MG PO QAM Multiple Vitamins W/ Minerals (Centrum Silver Ultra Wome), 1 TAB PO DAILY Primidone (Mysoline), 50 MG PO BID Rosuvastatin Calcium (Crestor), 5 MG PO DAILY Scheduled PRN Albuterol Hfa (Ventolin Hfa), 2 PUFFS INH Q6H PRN for SOB/Wheezing Hydrocodone W/ Homatropine (Hycodan 5/1.5MG 5 Ml), 5 ML PO HS PRN for Cough Allergies Coded Allergies: Cefprozil (Verified Allergy, Intermediate, hives, 02/23/17) Tetracycline (Verified Allergy, Intermediate, hives, 02/23/17) Sulfa Antibiotics (Verified Allergy, Unknown, Unknown, 02/23/17) Sulfamethoxazole (Verified Allergy, Unknown, 02/23/17) Physical Exam Vital Signs Date Time Temp Pulse Resp B/P (MAP) Pulse Ox O2 Delivery O2 Flow Rate FiO2 06/30/17 20:56 80 20 136/88 94 Room Air 06/30/17 20:19 78 06/30/17 19:13 37.9 84 24 157/92 93 Room Air 06/30/17 19:05 93 Room Air 06/30/17 19:05 93 Room Air Physical Exam GENERAL: Patient is a healthy-appearing well-nourished [] HEAD: Normocephalic atraumatic EYES: Ocular movements intact pupils equal and react to light OROPHARYNX mucous membranes are moist no exudates present no erythema or edema present NECK: Supple no nuchal rigidity CHEST: Good equal expansion LUNGS: Clear and equal to auscultation CARDIAC: Normal S1 and S2 ABDOMEN: Soft nontender no guarding BACK: Point tender to the 10th rib area on the right side of the back EXTREMITIES: No pain upon palpation normal muscle strength in all groups no clubbing cyanosis or edema NEURO: Patient is following commands and answering questions appropriately. Alert and oriented x3 Cranial Nerves 2-12 grossly intact Medical Decision & Procedures ER Provider Diagnostic Interpretation: Radiology results as stated below per my review and radiologist interpretation: Without HISTORY: 56 years-old Female Pt c/o SOB acute shortness of breath COMPARISON: Chest radiograph of same day, CTA chest 02/23/2017 TECHNIQUE: Portable upright AP view of the chest FINDINGS: Cardiomediastinal and hilar silhouettes are within normal limits. Mild right hemidiaphragmatic elevation. No pneumothorax, pleural effusion, focal airspace consolidation or overt pulmonary edema. Bones of the chest are grossly intact. Mild dextroscoliosis of the midthoracic spine is unchanged. IMPRESSION: No acute cardiopulmonary process. The above report was generated using voice recognition software. It may contain grammatical, syntax or spelling errors. Electronically signed by: Didier More M.D. 06/30/2017 7:15 PM (CHEST FOR PE) ANGIO WITH FINDINGS: CTA: Heart is normal in size without pericardial effusion. There is mild atherosclerotic plaquing of the thoracic aorta. There is no aortic dissection or aneurysm. Image great vessels are patent. The pulmonary arterial tree is well-opacified and demonstrates no focal filling defects to suggest pulmonary thromboembolic disease. The distal subsegmental branches however are not well opacified. CT CHEST: Thyroid is enlarged and heterogeneous suggesting goiter. No pathologically enlarged lymph nodes of the chest identified. No pneumothorax or pleural effusion. Linear subsegmental consolidative opacities of the lung bases are present, notably within the lower lobes. 5 mm noncalcified subpleural solid pulmonary nodule is seen within the lateral basal segment left lower lobe on image 78 of series 4 which is stable dating back to at least 05/18/2013 compatible with benign etiology. There is no pneumothorax or pleural effusion. 2 mm noncalcified pulmonary nodule seen within the lateral segment right middle lobe on image 148 of series 4, unchanged from 02/23/2017 and likely benign. No definite additional pulmonary nodules identified. Central airways are patent. The imaged upper abdominal structures are within normal limits. Soft tissues are unremarkable. Dextroscoliosis of the midthoracic spine. Multilevel intervertebral disc space narrowing, facet arthrosis and spondylitic changes of the spine. IMPRESSION: 1. No acute aortic pathology or evidence of pulmonary thromboembolic disease. 2. Linear subsegmental consolidative opacities of the lung bases suggest atelectasis. 3. Additional incidental findings as above. The above report was generated using voice recognition software. It may contain grammatical, syntax or spelling errors. Electronically signed by: Didier More M.D. 06/30/2017 8:16 PM Laboratory Results 06/30/17 19:20 Red Blood Count 4.53, Mean Corpuscular Volume 85.7, Mean Corpuscular Hemoglobin 28.5, Mean Corpuscular Hemoglobin Concent 33.2, Mean Platelet Volume 9.6, Neutrophils (%) (Auto) 69.2, Lymphocytes (%) (Auto) 18.9, Monocytes (%) (Auto) 9.4, Eosinophils (%) (Auto) 2.0, Basophils (%) (Auto) 0.4, Neutrophils # (Auto) 6.72, Lymphocytes # (Auto) 1.83, Monocytes # (Auto) 0.91, Eosinophils # (Auto) 0.19, Basophils # (Auto) 0.04 06/30/17 19:20 Test 06/30/17 19:20 06/30/17 19:28 White Blood Count 9.70 K/uL (4.8-10.8) Red Blood Count 4.53 M/uL (4.2-5.4) Hemoglobin 12.9 g/dL (12.0-16.0) Hematocrit 38.8 % (37-47) Mean Corpuscular Volume 85.7 fL (80-100) Mean Corpuscular Hemoglobin 28.5 pg (25-34) Mean Corpuscular Hemoglobin Concent 33.2 g/dl (32-36) Platelet Count 200 K/uL (130-400) Mean Platelet Volume 9.6 fL (7.4-10.4) Neutrophils (%) (Auto) 69.2 % Lymphocytes (%) (Auto) 18.9 % Monocytes (%) (Auto) 9.4 % Eosinophils (%) (Auto) 2.0 % Basophils (%) (Auto) 0.4 % Neutrophils # (Auto) 6.72 K/uL (1.4-6.5) Lymphocytes # (Auto) 1.83 K/uL (1.2-3.4) Monocytes # (Auto) 0.91 K/uL (0.11-0.59) Eosinophils # (Auto) 0.19 K/uL (0-0.5) Basophils # (Auto) 0.04 K/uL (0-0.2) RDW Standard Deviation 43.1 fL (36.4-46.3) RDW Coefficient of Variation 14.0 % (11.5-14.5) Immature Granulocyte % (Auto) 0.1 % Immature Granulocyte # (Auto) 0.01 K/uL (0.00-0.02) Est Creatinine Clear Calc Drug Dose 70.1 ml/min Estimated GFR () 66.3 Estimated GFR (Non- 57.2 BUN/Creatinine Ratio 18.6 (10-20) Calcium Level 8.3 mg/dl (8.5-10.1) Total Bilirubin 0.3 mg/dl (0.2-1) Aspartate Amino Transf (AST/SGOT) 13 U/L (15-37) Alanine Aminotransferase (ALT/SGPT) 22 U/L (12-78) Alkaline Phosphatase 57 U/L (45-117) Total Creatine Kinase 85 U/L (26-192) Creatine Kinase MB 1.2 ng/ml (0.5-3.6) Creatine Kinase MB Ratio 1.4 (0-3.0) Troponin I < 0.015 ng/ml (0-0.045) Total Protein 7.0 gm/dl (6.4-8.2) Albumin 3.5 gm/dl (3.4-5.0) Globulin 3.5 gm/dl (2.5-4.0) Albumin/Globulin Ratio 1.0 (0.9-2) Bedside Hemoglobin 13.3 g/dl (12.0-16.0) Bedside Hematocrit 39 % (37-47) Bedside Sodium 139 mEq/L (135-144) Bedside Potassium 7.0 mEq/L (3.3-5.0) Bedside Chloride 106 mEq/L (101-112) Bedside Total CO2 26 mEq/l (24-31) Anion Gap 15.0 mmol/L (16-25) Bedside Blood Urea Nitrogen 31 mg/dl (7-18) Bedside Creatinine 1.1 mg/dl (0.6-1.3) Bedside Glucose (other) 102 mg/dl (70-99) Bedside Ionized Calcium (Benito) 1.12 mmol/l (1.12-1.32) Labs reviewed by ED physician. Medications Administered Medications (Trade) Dose Ordered Sig/Carissa Route Start Time Stop Time Status Last Admin Dose Admin Hydromorphone HCl (Dilaudid Inj) 1 mg NOW STAT IV 06/30/17 18:53 06/30/17 18:55 DC 06/30/17 19:02 1 MG Ondansetron HCl (Zofran Inj) 4 mg NOW STAT IV 06/30/17 18:53 06/30/17 18:56 DC 06/30/17 19:01 4 MG Lidocaine (Lidoderm Patch 5%) 1 patch NOW STAT TD 06/30/17 19:01 06/30/17 19:02 DC 06/30/17 19:34 1 PATCH Ketorolac Tromethamine (Toradol Inj) 30 mg NOW STAT IV 06/30/17 19:04 06/30/17 19:05 DC 06/30/17 19:35 30 MG Levalbuterol (Xopenex 1.25MG/ 3ML Neb) 1.25 mg NOW STAT INH 06/30/17 19:05 06/30/17 19:08 DC 06/30/17 20:05 1.25 MG Methylprednisolone Sodium Succinate (Solu-Medrol IV) 125 mg NOW STAT IV 06/30/17 19:05 06/30/17 19:08 DC 06/30/17 19:34 125 MG Hydrocodone Bit/ Homatropine Methylb (Hycodan Elix Homepack 5/1.5MG/ 5ML) 1 homepack UD STAT PO 06/30/17 20:48 06/30/17 20:49 DC 06/30/17 21:10 1 HOMEPACK Amoxicillin (Amoxil Cap) 500 mg NOW STAT PO 06/30/17 20:48 06/30/17 20:49 DC 06/30/17 21:09 500 MG ECG Indication: other (rib pain) Rate (beats per minute): 82 Rhythm: normal sinus Findings: no acute ischemic change, no ectopy ED Course 1851: Past medical records reviewed. The patient was evaluated in room B12. A complete history and physical examination was performed. 1852: Zofran Inj 4mg IV, Dilaudid Inj 1mg IV 1900: Lidocaine 1 patch TD 1903: Toradol Inj 30mg IV 1904: Solu-Medrol IV 125mg IV 1904: Levalbuterol 1.25mg INH 2007: I reevaluated and updated the patient. 2047: Amoxicillin 500mg PO, Hydrocodone Bit/Homatropine Methylb 1 homepack PO 2124: Upon reexamination the patient is stable. I discussed results and treatment plan with the patient. She verbalizes agreement and understanding. The patient is ready for discharge. Medical Decision Differential diagnosis: Etiologies such as cardiac ischemia, aortic dissection, pulmonary embolism, pneumonia, pneumothorax, musculoskeletal, infections, pericarditis, myocarditis , esophageal rupture, gastrointestinal, as well as others were entertained. This is a 56-year-old female who presents emergency department complaining of right sided back pain that started after she began coughing today. The pain is worse with inspiration. The patient reports she has been battling this cough for the past month. Based on this finding the patient was sent for CAT scan of the chest although there is no evidence of PE. She does not also have an elevation in her white blood count cell count. The patient was given an hour- long breathing treatment in the emergency department along with a Lidoderm patch and Dilaudid. Repeat examination revealed much improvement the patient's symptoms. I do believe that the patient can be discharged home. I suspect she is having rib pain. I recommended taking her inhaler. The patient has been on 2 antibiotics including azithromycin and Levaquin over the past month. We will attempt to place the patient on amoxicillin for better coverage. Patient was in agreement with the treatment plan. Medication Reconcilliation Current Medication List: was personally reviewed by me Blood Pressure Screening Patient's blood pressure: Elevated blood pressure Blood pressure disposition: Referred to PCP Impression Primary Impression: Back pain Additional Impression: Cough Scribe Attestation The scribe's documentation has been prepared under my direction and personally reviewed by me in its entirety. I confirm that the note above accurately reflects all work, treatment, procedures, and medical decision making performed by me. Departure Information Dispostion Home / Self-Care Prescriptions Fluconazole (DIFLUCAN) 150 Mg Tab 150 MG PO 3XWK for 3 Days, #3 TAB Prov: Fahad Terrell MD 06/30/17 Amoxicillin (AMOXIL) 500 Mg Cap 500 MG PO TID for 10 Days, #30 CAP Prov: Fahad Terrell MD 06/30/17 Hydrocodone W/ Homatropine (HYCODAN 5/1.5MG 5 ML) 1 Syp Syp 5 ML PO HS Y for Cough, #120 ML Prov: Fahad Terrell MD 06/30/17 Lidocaine (Lidoderm Patch 5%) 1 Ea Tdsy 1 PATCH TD DAILY for 30 Days, #30 PATCH Prov: Fahad Terrell MD 06/30/17 Referrals Kadie Alberts M.D. (PCP) Forms HOME CARE DOCUMENTATION FORM, IMPORTANT VISIT INFORMATION, WORK / SCHOOL INSTRUCTIONS Patient Instructions My [facility] [employer] Additional Instructions You were found to have an elevated blood pressure today (>120 sytolic or >90 diastolic). Per medicare guidelines, you need to follow up with this blood pressure screening with your Primary Care Physician (PCP). For a new PCP call [phone]. You received narcotic or benzodiazepene medication while in the emergency room today. This is an addictive medication that may cause drowziness as well as constipation. Do not drive, operate heavy machinery, or drink alcohol under the influence of this medication. Apply Lidoderm patch Take 600 mg Ibuprofen every 6 hours Take Hycodan for breakthrough pain Culture results are usually available in approx 48 hours You have been examined and treated today on an emergency basis only. This is not a substitute for, or an effort to provide, complete comprehensive medical care. It is impossible to recognize and treat all injuries or illnesses in a single emergency department visit. It is therefore important that you follow up closely with Dr Alberts. Call as soon as possible for an appointment. Thank you for your time and consideration. I look forward to speaking with you again soon. Please don't hesitate to call us if you have any questions. Problem Qualifiers Primary Impression: Back pain Back pain location: low back pain Chronicity: unspecified Back pain laterality: unspecified Sciatica presence: unspecified whether sciatica present Qualified Codes: M54.5 - Low back pain
[2017-06-30 19:05] VITALS: O2SAT 93
[2017-06-30] MEDS ORDERED: METHYLPREDNISOLONE 125 MG VIAL IV STA (19:05)
[2017-06-30] MEDS ORDERED: LEVALBUTEROL 1.25MG/3ML NEB INH STA (19:05)
[2017-06-30 19:13] VITALS: TEMP 37.9; Ht 177.8 cm; Wt 91.0 kg
[2017-06-30] MEDS ORDERED: OPTIRAY 320 IV PRN (19:15)
--- NOTE | 2017-06-30 19:16 | DIAGNOSTIC IMAGING REPORT ---
Without HISTORY: 56 years-old Female Pt c/o SOB acute shortness of breath COMPARISON: Chest radiograph of same day, CTA chest 02/23/2017 TECHNIQUE: Portable upright AP view of the chest FINDINGS: Cardiomediastinal and hilar silhouettes are within normal limits. Mild right hemidiaphragmatic elevation. No pneumothorax, pleural effusion, focal airspace consolidation or overt pulmonary edema. Bones of the chest are grossly intact. Mild dextroscoliosis of the midthoracic spine is unchanged. IMPRESSION: No acute cardiopulmonary process. The above report was generated using voice recognition software. It may contain grammatical, syntax or spelling errors. Electronically signed by: Didier More M.D. 06/30/2017 7:15 PM Dictated Date/Time: 06/30/2017 7:07 PM
[2017-06-30] MEDS ORDERED: OMEG10007 PO (19:31)
[2017-06-30] MEDS ORDERED: CETI10TA84 PO (19:31)
[2017-06-30] MEDS ORDERED: MONT1TAB3 PO (19:31)
[2017-06-30] MEDS ORDERED: FLUT1INH INH (19:31)
[2017-06-30] MEDS ORDERED: CAMPOIN7 TOP (19:31)
[2017-06-30] MEDS ORDERED: ROSU5TAB PO (19:31)
[2017-06-30] MEDS ORDERED: PRIM50TA29 PO (19:31)
[2017-06-30] MEDS ORDERED: LACT10CA3 PO (19:31)
[2017-06-30 19:33] LABS: BASO % 0.4 %; BASO ABS # 0.04 K/uL (0-0.2); COMPLETE YES; HEMATOCRIT 38.8 % (37-47); IG% 0.1 %; LYMPH % 18.9 %; LYMPH ABS # 1.83 K/uL (1.2-3.4); MEAN CELL VOLUME 85.7 fL (80-100); MEAN CORPUSCULAR HEMOGLOBIN 28.5 pg (25-34); MEAN CORPUSCULAR HGB CONC 33.2 g/dl (32-36); MEAN PLATELET VOLUME 9.6 fL (7.4-10.4); MONO % 9.4 %; NEUT % 69.2 %; PLATELET COUNT 200 K/uL (130-400); RED BLOOD COUNT 4.53 M/uL (4.2-5.4)
[2017-06-30 19:50] LABS: ISTAT CREATININE 1.1 mg/dl (0.6-1.3); ISTAT HEMOGLOBIN 13.3 g/dl (12.0-16.0); ISTAT IONIZED CALCIUM 1.12 mmol/l (1.12-1.32)
[2017-06-30 20:07] LABS: ALT/SGPT 22 U/L (12-78); AST/SGOT 13 U/L (15-37); BLOOD UREA NITROGEN 20 mg/dl (7-18); BUN/CREATININE RATIO 18.6 (10-20); CALCIUM 8.3 mg/dl (8.5-10.1); CARBON DIOXIDE 27 mmol/L (21-32); CHLORIDE 110 mmol/L (98-107); CREATININE 1.07 mg/dl (0.60-1.20); GLUCOSE 100 mg/dl (70-99); POTASSIUM 4.3 mmol/L (3.5-5.1); SODIUM 142 mmol/L (136-145)
[2017-06-30 20:12] LABS: ALKALINE PHOSPHATASE 57 U/L (45-117); CKMB/CK RATIO 1.4 (0-3.0)
--- NOTE | 2017-06-30 20:18 | DIAGNOSTIC IMAGING REPORT ---
(CHEST FOR PE) ANGIO WITH CT DOSE: 601.00 mGy.cm HISTORY: 56 years-old Female presents with acute atypical right-sided chest pain. Initial exam. TECHNIQUE: Multiple CTA images of the chest were obtained after the intravenous administration of 101 ml Optiray 320. Coronal and sagittal MIPS were obtained from the axial data set and were submitted for review. A dose lowering technique was utilized adhering to the principles of ALARA. COMPARISON: CTA of the chest 02/23/2017, CT abdomen 05/18/2013. FINDINGS: CTA: Heart is normal in size without pericardial effusion. There is mild atherosclerotic plaquing of the thoracic aorta. There is no aortic dissection or aneurysm. Image great vessels are patent. The pulmonary arterial tree is well-opacified and demonstrates no focal filling defects to suggest pulmonary thromboembolic disease. The distal subsegmental branches however are not well opacified. CT CHEST: Thyroid is enlarged and heterogeneous suggesting goiter. No pathologically enlarged lymph nodes of the chest identified. No pneumothorax or pleural effusion. Linear subsegmental consolidative opacities of the lung bases are present, notably within the lower lobes. 5 mm noncalcified subpleural solid pulmonary nodule is seen within the lateral basal segment left lower lobe on image 78 of series 4 which is stable dating back to at least 05/18/2013 compatible with benign etiology. There is no pneumothorax or pleural effusion. 2 mm noncalcified pulmonary nodule seen within the lateral segment right middle lobe on image 148 of series 4, unchanged from 02/23/2017 and likely benign. No definite additional pulmonary nodules identified. Central airways are patent. The imaged upper abdominal structures are within normal limits. Soft tissues are unremarkable. Dextroscoliosis of the midthoracic spine. Multilevel intervertebral disc space narrowing, facet arthrosis and spondylitic changes of the spine. IMPRESSION: 1. No acute aortic pathology or evidence of pulmonary thromboembolic disease. 2. Linear subsegmental consolidative opacities of the lung bases suggest atelectasis. 3. Additional incidental findings as above. The above report was generated using voice recognition software. It may contain grammatical, syntax or spelling errors. Electronically signed by: Didier More M.D. 06/30/2017 8:16 PM Dictated Date/Time: 06/30/2017 8:07 PM
[2017-06-30] MEDS ORDERED: HYCODAN 60ML BOTTLE HOMEPACK PO STA (20:48)
[2017-06-30] MEDS ORDERED: AMOXICILLIN 250 MG CAP PO STA (20:48)
[2017-06-30 20:56] VITALS: BP 136/88; PULSE 80; O2SAT 94
[2017-06-30] MEDS ORDERED: HYDR5SYP11 PO (21:00)
[2017-06-30] MEDS ORDERED: NF656 TD (21:00)
[2017-06-30] MEDS ORDERED: FLUC150T PO (21:39)
[2017-06-30] MEDS ORDERED: AMOX500C3 PO (21:39)
== END 2017-06-30 21:25 | disposition home or self-care (01) ==
LOC: EDBD 18:48 → C.EDB 18:50
DX: R07.81 Pleurodynia (principal); R05 Cough; M54.9 Dorsalgia, unspecified; J45.909 Unspecified asthma, uncomplicated; G25.0 Essential tremor; I10 Essential (primary) hypertension

== ENCOUNTER → 2017-09-02 | Outpatient (CLI) | payer BC ==
[~2017-09-02] MED LIST changes: +CAMPOIN7 TOP; +CETI10TA84 PO; -CLR10 PO; +FLUT1INH INH; +LACT10CA3 PO; +MONT1TAB3 PO; -MTR600 PO; +NF656 TD; -NYSTOIN EX; +OMEG10007 PO; +PRIM50TA29 PO; -PROB1CAP PO; +ROSU5TAB PO; -VTME100 PO
--- NOTE | 2017-09-02 14:52 | MAMMOGRAPHY REPORT ---
BILATERAL DIGITAL SCREENING MAMMOGRAM TOMOSYNTHESIS WITH CAD: 09/02/2017 CLINICAL HISTORY: Routine screening. Patient has no complaints. TECHNIQUE: Breast tomosynthesis in addition to standard 2D mammography was performed. Current study was also evaluated with a Computer Aided Detection (CAD) system. COMPARISON: Comparison is made to exams dated: 07/21/2016 mammogram, 07/18/2015 mammogram, 4 mammogram, 07/01/2011 mammogram, 01/21/2010 mammogram, and 06/28/2009 ultrasound - [facility]. BREAST COMPOSITION: There are scattered areas of fibroglandular density in both breasts. FINDINGS: No suspicious masses, calcifications, or areas of architectural distortion are noted in ei ther breast. There has been no significant interval change compared to prior exams. A biopsy marker clip is again noted within the right breast. IMPRESSION: ACR BI-RADS CATEGORY 2: BENIGN There is no mammographic evidence of malignancy. A 1 year screening mammogram is recommended. The pa tient will receive written notification of the results. Approximately 10% of breast cancers are not detected with mammography. A negative mammographic report should not delay biopsy if a clinically suggestive mass is present. Flower Saleh M.D. /:09/02/2017 14:40:51 Pipe Supervisor: Agatha ALVARADO)([place]), [facility] letter sent: Normal 1/2 BI-RADS Code: ACR BI-RADS Category 2: Benign
== END | disposition home or self-care (01) ==
LOC: C.MAMM 09:27
PROVIDERS: ATTEND Obstetrics & Gynecology
DX: Z12.31 Encounter for screening mammogram for malignant neoplasm of breast (principal)

== ENCOUNTER → 2017-09-02 | Outpatient (CLI) | payer BC | END | disposition home or self-care (01) | LOC: C.MAMM 09:30 | PROVIDERS: ATTEND Family Medicine | DX: M85.89 Other specified disorders of bone density and structure, multiple sites (principal) ==

== ENCOUNTER → 2017-09-07 | Outpatient (CLI) | payer BC | END | disposition home or self-care (01) | LOC: C.LABMFLN 10:25 | PROVIDERS: ATTEND Family Medicine | DX: E55.9 Vitamin D deficiency, unspecified (principal); E78.5 Hyperlipidemia, unspecified; E03.9 Hypothyroidism, unspecified ==